=== PATIENT | male | born 1930 | race Caucasian/White ===

== ENCOUNTER 2018-02-25 13:57 | Emergency (ER) | END 2018-02-25 16:51 | disposition home or self-care (01) ==

== ENCOUNTER 2018-07-12 01:30 | Observation (INO) | payer BC ==
[2018-07-12] VITALS (9 sets, daily range): BP systolic 100–137; BP diastolic 57–73; PULSE 61–103; RESP 16–20; Ht 205.7 cm; Wt 79.5 kg
[~2018-07-12] VITALS: Ht 205.7 cm; Wt 79.5 kg
[~2018-07-12 01:30] MED LIST: CIPR500T4 PO; FINA5TAB4 PO; GLIP10TA14 PO; LEVO50TA7 PO; METF100010 PO; TERA2CAP3 PO
--- NOTE | 2018-07-12 02:31 | ERD ---
ER Documentation Chief Complaint Chief Complaint DIFFICULTY BREATHING X 4 DAYS HPI The patient is a 87-year-old male, presenting to the ER because of acute dyspnea for the last 4-day, dyspnea on exertion, had similar symptoms previously, denies fever, cough, neck pain, chest pain, abdominal pain, vomiting 20 sigmoid diarrhea. He has history of metastatic prostate cancer, recently treated with injection about 4 days ago. He does smoke a pack a day, denies drinking Past medical history: Metastatic prostate cancer, hypothyroidism, diabetes mellitus, ?COPD Past surgical history: None ROS All systems reviewed and are negative except as per history of present illness. Medications Home Meds Active Scripts Ciprofloxacin Hcl* (Ciprofloxacin Hcl*) 500 Mg Tablet, 500 MG PO BID for 10 Days, TAB Prov:JACOBO WANG DO 02/25/18 Reported Medications Levothyroxine Sodium* (Levothyroxine Sodium*) 50 Mcg Tablet, 50 MCG PO BEFORE BREAKFAST, #30 TAB 02/25/18 Metformin Hcl* (Metformin Hcl*) 1,000 Mg Tablet, 1000 MG PO WITH BREAKFAST DINNE, #60 TAB 02/25/18 Glipizide* (Glipizide*) 10 Mg Tablet, 20 MG PO AC BREAKFAST DINNER, TAB 02/25/18 Finasteride* (Finasteride*) 5 Mg Tablet, 5 MG PO DAILY, TAB 02/25/18 Terazosin Hcl* (Terazosin Hcl*) 2 Mg Capsule, 4 MG PO QHS, CAP 02/25/18 Allergies Allergies: Coded Allergies: No Known Allergy (Unverified , 07/12/18) PMhx/Soc History of Surgery: No Anesthesia Reaction: No Hx Neurological Disorder: No Hx Respiratory Disorders: No Hx Cardiac Disorders: No Hx Psychiatric Problems: No Hx Miscellaneous Medical Probl: Yes (DM, ENLARGE PROSTATE) Hx Alcohol Use: No Hx Substance Use: No Hx Tobacco Use: Yes Physical Exam Vitals Vital Signs Date Temp Pulse Resp B/P (MAP) Pulse Ox O2 O2 Flow FiO2 Time Delivery Rate 07/12/18 Nasal 2 04:54 Cannula 07/12/18 85 23 134/77 96 Room Air 04:28 (96) 07/12/18 96.3 108 20 136/73 96 01:38 (94) Physical Exam Const: No acute distress. Head: Atraumatic. Eyes: Normal Conjunctiva. ENT: Normal External Ears, Nose and Mouth. Neck: Full range of motion. No meningismus. Resp: Decreased breath sounds bilateral Cardio: Regular rate and rhythm. Abd: Soft, non distended, normal bowel sounds, non tender. Skin: No petechiae or rashes. Back: No midline or flank tenderness. Ext: Minimal right leg edema, no calf tenderness Neur: Awake and alert. No focal deficit Psych: Normal Mood and Affect. Result Diagram: 07/12/18 0250 07/12/18 0250 Results 24 hrs Laboratory Tests Test 07/12/18 02:50 07/12/18 03:05 07/12/18 03:13 07/12/18 05:46 White Blood Count 6.5 10^3/ul Red Blood Count 4.09 10^6/ul Hemoglobin 12.4 g/dl Hematocrit 36.7 % Mean Corpuscular 89.7 fl Volume Mean Corpuscular 30.3 pg Hemoglobin Mean Corpuscular 33.8 g/dl Hemoglobin Concen t Red Cell 12.9 % Distribution Width Platelet Count 169 10^3/UL Mean Platelet 11.0 fl Volume Immature 0.300 % Granulocytes % Neutrophils % 69.1 % Lymphocytes % 17.3 % Monocytes % 10.0 % Eosinophils % 2.8 % Basophils % 0.5 % Nucleated Red 0.0 /100WBC Blood Cells % Immature 0.020 10^3/ul Granulocytes # Neutrophils # 4.5 10^3/ul Lymphocytes # 1.1 10^3/ul Monocytes # 0.7 10^3/ul Eosinophils # 0.2 10^3/ul Basophils # 0.0 10^3/ul Nucleated Red 0.0 10^3/ul Blood Cells # Prothrombin Time 14.6 Sec Prothrombin Time 1.1 Ratio INR International 1.13 Normalized Ratio Activated 31.7 Sec Partial Thrombopl ast Time Sodium Level 139 mmol/L Potassium Level 4.2 mmol/L Chloride Level 103 mmol/L Carbon Dioxide 28 mmol/L Level Anion Gap 8 Blood Urea 26 mg/dl Nitrogen Creatinine 1.02 mg/dl Est Glomerular mL/min Filtrat Rate mL/min Glucose Level 129 mg/dl Calcium Level 9.2 mg/dl Total Bilirubin 0.3 mg/dl Direct Bilirubin 0.00 mg/dl Indirect 0.3 mg/dl Bilirubin Aspartate Amino 31 IU/L Transf (AST/SGOT) Alanine 21 IU/L Aminotransferase (ALT/SGPT) Alkaline 59 IU/L Phosphatase Troponin I 0.074 ng/ml Total Protein 7.1 g/dl Albumin 3.8 g/dl Globulin 3.30 g/dl Albumin/Globulin 1.15 Ratio Urine Color STRAW Urine Clarity CLEAR Urine pH 6.0 Urine Specific 1.005 [place] Urine Ketones NEGATIVE mg/dL Urine Nitrite NEGATIVE mg/dL Urine Bilirubin NEGATIVE mg/dL Urine NEGATIVE mg/dL Urobilinogen Urine Leukocyte NEGATIVE Doretha/ul Esterase Urine Microscopic 0 /HPF RBC Urine Microscopic 0 /HPF WBC Urine Hemoglobin 1+ mg/dL Urine Glucose NEGATIVE mg/dL Urine Total NEGATIVE mg/dl Protein POC Venous 1.4 mmol/L 1.3 mmol/L Lactate Current Medications Medications Dose Sig/Annemarie Start Time Status Last (Trade) Ordered Route PRN Stop Time Admin Dose Reason Admin IV Flush 10 ml STK-MED 07/12/18 DC 07/12/18 (NS 10 ml) ONCE .ROUTE 04:42 04:53 07/12/18 04:43 Sodium 100 ml @ ud STK-MED 07/12/18 DC 07/12/18 Chloride ONCE .ROUTE 04:42 04:53 07/12/18 04:43 Iohexol 100 ml @ ud STK-MED 07/12/18 DC 07/12/18 ONCE .ROUTE 04:42 04:53 07/12/18 04:43 Vancomycin 250 ml @ ONCE ONCE 07/12/18 07/12/18 HCl 125 mls/hr IVPB 05:00 05:44 07/12/18 06:59 Piperacillin 100 ml @ ONCE ONCE 07/12/18 DC 07/12/18 Sod/ 200 mls/hr IVPB 05:00 05:35 Tazobactam 07/12/18 05:29 Sod Sodium 2,390 ml @ BOLUS X1 07/12/18 07/12/18 Chloride 1,195 mls/hr ONCE IV 05:00 05:36 07/12/18 06:59 Procedures/MDM [place] [id number] Radiology Main Line: [phone] DIAGNOSTIC IMAGING REPORT Patient: PEDRO LUIS BLAKE : 1930 Age: 87 Sex: M MR #: [id number] DOS: 07/12/18 0240 Ordering MD: CASSIE WATSON MD Location: E/R Room/Bed: PROCEDURE: XR Chest. CLINICAL INDICATION: Sepsis TECHNIQUE: AP view of the chest. COMPARISON: None FINDINGS: The heart is enlarged. There is aortic knob calcification. There is mild pulmonary vascular congestion. There is a left lower lobe patchy airspace opacity suspicious for pneumonia. Multiple densities project over the left upper and mid hemithorax. IMPRESSION: Cardiomegaly and mild pulmonary vascular congestion. Left lower lobe patchy airspace opacity suspicious for pneumonia. RPTAT: HAP Admit-r Pal, Physician Date Time Electronically viewed and signed by Admit-r Pal, Physician on 07/12/2018 04:24 AP/ CC: CASSIE WATSON MD [phone] CTA Chest pending EKG: Read by emergency physician Rate/Rhythm: Normal Sinus Rhythm 91 beats/min QRS, ST, T-waves: No ST elevation, no T inversion, PVC, LBBB Impression: Abnormal EKG MEDICAL MAKING DECISION: The patient is a 87-year-old male, presenting with acute pneumonia per chest x-ray, probable COPD exacerbation, acute right pleural effusion. He was treated with vancomycin IV and cefepime IV due to pneumonia on the chest x-ray The differential diagnoses considered include but are not limited to asthma, COPD exac, pneumonia, pulmonary embolus, pleural effusion, congestive heart failure. Departure Diagnosis: Primary Impression: PNA (pneumonia) Additional Impression: Anemia Condition: Stable Comments I discussed the findings with the patient. I discussed the patient with the hospitalist Dr Tracey at 5:15am. who was made aware of the lab, the treatment, the patient condition, pending CTA chest. The patient is admitted to [facility] Disclaimer: Inadvertent spelling and grammatical errors are likely due to EHR/dictation software use and do not reflect on the overall quality of patient care. Also, please note that the electronic time recorded on this note does not necessarily reflect the actual time of the patient encounter. CASSIE WATSON MD Jul 12, 2018 02:31
[2018-07-12] MEDS ORDERED: SOD CHLORIDE 0.9% 100 ML ONE (04:42)
[2018-07-12] MEDS ORDERED: IOHEXOL 100 ML ONE (04:42)
[2018-07-12] MEDS ORDERED: PIPER-TAZO 3.375 GM IV (PMX) 100 ML IVPB ONE (05:00)
[2018-07-12] MEDS ORDERED: SOD CHLORIDE 0.9% 2,390 ML IV ONE (05:00)
[2018-07-12] MEDS ORDERED: VANCOMYCIN 1 GM (PMX) 250 ML IVPB ONE (05:00)
[2018-07-12] MEDS ORDERED: ACETAMINOPHEN 325 MG TAB PO PRN (09:00)
[2018-07-12] MEDS ORDERED: NACL 0.9% 3 ML SYG IV SCH (09:00)
[2018-07-12] MEDS ORDERED: FUROSEMIDE 40 MG INJ IV ONE (09:00)
[2018-07-12] MEDS ORDERED: MAGNESIUM HYDROXIDE 30ML CUP PO PRN (09:00)
[2018-07-12] MEDS ORDERED: DOCUSATE SODIUM 100 MG CAP PO PRN (09:00)
[2018-07-12] MEDS ORDERED: ENOXAPARIN 40 MG/0.4 ML SYG SC SCH (09:00)
[2018-07-12] MEDS ORDERED: ONDANSETRON 4 MG INJ IV PRN (09:00)
[2018-07-12] MEDS ORDERED: ALBUTEROL/IPRATROPIUM (NEB) 3 ML AMP HHN PRN (09:00)
[2018-07-12] MEDS ORDERED: BISACODYL 10 MG SUPP PR PRN (09:00)
[2018-07-12] MEDS ORDERED: NITROGLYCERIN (SL) 0.4 MG TAB SL PRN (09:00)
[2018-07-12] MEDS: FAMOTIDINE 20 MG TAB PO SCH ×2 (09:58→21:09)
[2018-07-12] MEDS: NICOTINE (21 MG/24 HR) PATCH TRANSDERM SCH (09:59)
[2018-07-12] MEDS: FINASTERIDE 5 MG TAB PO SCH (10:41)
[2018-07-12] MEDS: FLUTICASONE/VILANTEROL 100-25 INH SCH (10:41)
--- NOTE | 2018-07-12 12:08 | HP ---
Date/Time of Note Date/Time of Note DATE: 07/12/18 TIME: 12:06 Assessment/Plan VTE Prophylaxis Risk score (from Ns)>0 risk: 4 SCD applied (from Ns): Yes Pharmacological prophylaxis: LMWH Lines/Catheters IV C[facility]ter [facility]from [facility] Saline Lock Assessment/Plan Assessment/Plan 87-year-old male with: 1. Mild respiratory distress mostly dyspnea on exertion, likely COPD with a possibly mild exacerbation secondary to bronchitis possibly viral. Patient is advised to stop smoking. Starting maintenance therapy including Breo Ellipta, Spiriva. Levaquin for possible bronchitis. No pneumonia per CT chest and like report from chest x-ray. Patient will be evaluated for home O2. According to the daughter likely this episodes of shortness of breath have been chronic so far. Nicotine patch ordered. 2. Possible mild volume overload, CT chest with the [id number] right pleural effusion that seems to be likely chronic with compressive atelectasis and also some infiltrate that could be consistent with pulmonary edema, patient is noted to have also cardiomegaly. 2D echocardiogram is pending. He has been given a dose of Lasix x1, cardiac enzymes negative on admission, will repeat once 12 hours apart to rule out ACS. He remains in sinus rhythm 3. Diabetes mellitus: Status post CT angiogram chest, holding of metformin, continue glipizide, sliding scale insulin. 4. Hypothyroidism: Continue home medications 5. 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 Continue supportive care, patient on palliative chemotherapy apparently with Lupron. Can benefit from supplemental oxygen at home 2 L nasal cannula. Prophylaxis: Lovenox for DVT prophylaxis, patient tolerating p.o. Disposition: Patient was admitted on observation, on telemetry. Monitor respiratory status, will see if qualify for home O2 and arrangements to be made for discharge planning hopefully in the next 24-48 hours. Result Diagram: 07/12/18 0250 07/12/18 0250 Results 24hrs Laboratory Tests Test 07/12/18 02:50 07/12/18 03:05 07/12/18 03:13 07/12/18 05:46 White Blood Count 6.5 Red Blood Count 4.09 L Hemoglobin 12.4 L Hematocrit 36.7 L Mean Corpuscular 89.7 Volume Mean Corpuscular 30.3 Hemoglobin Mean Corpuscular 33.8 Hemoglobin Concent Red Cell 12.9 Distribution Width Platelet Count 169 Mean Platelet Volume 11.0 H Immature 0.300 Granulocytes % Neutrophils % 69.1 Lymphocytes % 17.3 Monocytes % 10.0 Eosinophils % 2.8 Basophils % 0.5 Nucleated Red Blood 0.0 Cells % Immature 0.020 Granulocytes # Neutrophils # 4.5 Lymphocytes # 1.1 Monocytes # 0.7 Eosinophils # 0.2 Basophils # 0.0 Nucleated Red Blood 0.0 Cells # Prothrombin Time 14.6 Prothrombin Time 1.1 Ratio INR International 1.13 Normalized Ratio Activated 31.7 Partial Thromboplast Time Sodium Level 139 Potassium Level 4.2 Chloride Level 103 Carbon Dioxide Level 28 Anion Gap 8 Blood Urea Nitrogen 26 H Creatinine 1.02 Est Glomerular Filtrat Rate mL/min Glucose Level 129 Calcium Level 9.2 Total Bilirubin 0.3 Direct Bilirubin 0.00 Indirect Bilirubin 0.3 Aspartate Amino 31 Transf (AST/SGOT) Alanine 21 Aminotransferase (AL T/SGPT) Alkaline Phosphatase 59 Troponin I 0.074 Total Protein 7.1 Albumin 3.8 Globulin 3.30 H Albumin/Globulin 1.15 Ratio Urine Color STRAW Urine Clarity CLEAR Urine pH 6.0 Urine Specific 1.005 [place] Urine Ketones NEGATIVE Urine Nitrite NEGATIVE Urine Bilirubin NEGATIVE Urine Urobilinogen NEGATIVE Urine Leukocyte NEGATIVE Esterase Urine Microscopic 0 RBC Urine Microscopic 0 WBC Urine Hemoglobin 1+ H Urine Glucose NEGATIVE Urine Total Protein NEGATIVE POC Venous Lactate 1.4 1.3 Test 07/12/18 06:45 Lactic Acid Level 0.9 HPI/ROS Admit Date/Time Admit Date/Time Jul 12, 2018 at 05:19 Hx of Present Illness Chief complaint: Shortness of breath History of presenting illness: 87-year-old male with history of diabetes mellitus, prostate CA metastatic stage IV with bone metastases and according to the daughter also pulmonary involvement who was brought into the emergency department with increasing dyspnea on exertion and decreased exercise tolerance for the past 4 days. Patient got his shot of Lupron for the first time 4 days ago and since then, according to the daughter, she did notice decreased exercise tolerance, increased shortness of breath with exertion and increasing fatigue. Patient has been coughing slightly productive cough over the past 24 hours. No fevers, no chills. Per evaluation in the emergency department, WBC within normal, lactic acid within normal. Chest x-ray at first was identifying a left lower lobe infiltrate and possibility of a pneumonia however CT chest did confirm that the patient does have emphysema and no acute infiltrate seen no signs of pneumonia, he does have a small to moderate right pleural effusion with some compressive atelectasis, likelihood is that this is not new and may be related to metastatic disease. According to the daughter, she has been asking the primary care physician to have the patient approved for home O2 which suspect that he has been having issues with dyspnea on exertion more or less chronically. He is a heavy tobacco user with signs of COPD on CAT scan and still smoking 1 pack a day. Patient denies any previous cardiac disease, no chest pains. Currently stable on 2 L nasal cannula. ROS Constitutional: fatigue Eyes: no complaints ENT: no complaints Respiratory: cough, shortness of breath, other (Dyspnea on exertion and decreased exercise tolerance) Cardiovascular: no complaints Gastrointestinal: no complaints Genitourinary: no complaints Musculoskeletal: no complaints Skin: no complaints Neurologic: no complaints Endocrine: no complaints Psychological: no complaints PMH/Family/Social Past Medical History Diabetes mellitus Metastatic prostate cancer, stage IV, started Lupron 4 days ago. Patient with the mets to the bone and according to daughter also pulmonary involvement Hypothyroidism Medications Current Medications Finasteride (Proscar) 5 mg DAILY PO Last administered on 07/12/18at 10:41; Admin Dose 5 MG; Start 07/12/18 at 09:00 Glipizide (Glucotrol) 20 mg AC BREAKFAST DINNER PO ; Start 07/12/18 at 17:30 Levothyroxine Sodium (Synthroid) 50 mcg BEFORE BREAKFAST PO ; Start 07/13/18 at 07:00 Terazosin HCl (Hytrin) 4 mg QHS PO ; Start 07/12/18 at 21:00 IV Flush (NS 3 ml) 3 ml PER PROTOCOL IV ; Start 07/12/18 at 09:00 Ondansetron HCl (Zofran Inj) 4 mg Q6H PRN IV NAUSEA AND/OR VOMITING; Start at 09:00 Nitroglycerin (Nitroglycerin (Sl Tab) 0.4 Mg) 1 tab Q5M PRN SL CHEST PAIN; Start 07/12/18 at 09:00 Acetaminophen (Tylenol Tab) 650 mg Q6H PRN PO PAIN LEVEL 1-3 OR FEVER; Start 07/12/18 at 09:00 Docusate Sodium (Colace) 100 mg Q12H PRN PO CONSTIPATION; Start 07/12/18 at 09:00 Magnesium Hydroxide (Milk Of Mag) 30 ml DAILY PRN PO CONSTIPATION; Start 07/12/18 at 09:00 Bisacodyl (Dulcolax Supp) 10 mg DAILY PRN DC CONSTIPATION; Start 07/12/18 at 09:00 Famotidine (Pepcid) 20 mg Q12 PO Last administered on 07/12/18at 09:58; Admin Dose 20 MG; Start 07/12/18 at 09:00 Fluticasone/ Vilanterol (Breo Ellipta 100-25 Mcg Inh) 1 inh DAILY INH Last administered on 07/12/18at 10:41; Admin Dose 1 INH; Start 07/12/18 at 09:00 Albuterol/ Ipratropium (Duoneb) 3 ml Q4H RESP THERAPY PRN HHN SHORTNESS OF BREATH; Start 07/12/18 at 09:00 Diagnostic Test (Pha) (Accu-Chek) 1 ea 02 XX ; Start 07/13/18 at 02:00 Insulin Aspart (Novolog Insulin Pen) NOVOLOG *MILD* ALGORITHM WITH MEALS BEDTIME SC ; Start 07/12/18 at 12:00 Nicotine (Nicoderm 21 Mg/ 24hr) 1 patch DAILY TRANSDERM Last administered on 07/12/18at 09:59; Admin Dose 1 PATCH; Start 07/12/18 at 10:00 Tiotropium [place] (Spiriva) 1 inh DAILY INH ; Start 07/12/18 at 12:30; Status UNV Levofloxacin (Levaquin) 500 mg DAILY PO ; Start 07/12/18 at 12:30; Status UNV Coded Allergies: No Known Allergy (Unverified , 07/12/18) Past Surgical History Prostate biopsy remotely Family History Significant Family History: no pertinent family hx Social History Alcohol Use: occasionally Smoking Status: Current every day smoker (1 pack/day x 80 yrs ) Drug Use: none Exam/Review of Systems Vital Signs Vitals Vital Signs Date Temp Pulse Resp B/P (MAP) Pulse Ox O2 O2 Flow FiO2 Time Delivery Rate 07/12/18 97.6 61 16 109/67 95 11:21 (81) 07/12/18 Nasal 2.0 08:00 Cannula Exam Constitutional: alert, oriented, well developed (Of appropriate age) Respiratory: normal air movement, congested cough, diminished breath sounds (Mostly right lower lobe, he does have some few crackles and a congested cough), other (On 2 L nasal cannula) Cardiovascular: regular rate and rhythm, nl pulses Gastrointestinal: soft, non-tender Musculoskeletal: nl extremities to inspection Extremities: normal pulses, other (No edema, clubbing or cyanosis) Neurological: [employer] SK[employer] OFFICER II-XII intact, nl mental status, nl speech, nl strength, other (Decreased exercise tolerance) Additional Comments EKG: Sinus rhythm with PVCs 91 bpm PROCEDURE: CTA Chest. CLINICAL INDICATION: Shortness of breath TECHNIQUE: The study was performed utilizing a multidetector CT scanner. Direct spiral 1 mm axial sections were obtained from the thoracic inlet to the upper abdomen with the use of 100 cc of Omnipaque 350 nonionic intravenous c ontrast material and reformatted at 3 mm. Coronal, sagittal and 3-D angiographic reformations were obtained. The images were reviewed on a PACS workstation. CT D I 35 mCi Dose 615 mGy/cm Individualized dose optimization technique was used for the performance of this exam. This included 1. Automated exposure control. 2. Adjustment of the mA and / or kV according to the patient's size. 3. Use of iterative reconstruction technique. COMPARISON: No prior studies are available for comparison. FINDINGS: There is no central or peripheral pulmonary embolism. There is no evidence of pulmonary hypertension with the main pulmonary artery measuring 3 cm in diameter. There is calcified plaque in the wall of the aorta with no dissection or aneurysm. There is atelectasis in the dependent portion of the right lower lobe with plate-like atelectasis at the medial left lung base. No alveolar pneumonia or mass is present. There is a 7 mm well-demarcated noncalcified nodule on the anterolateral aspect of the right lower lobe. Increased pleural based linear densities are noted in both lungs.. There is no hilar or mediastinal adenopathy or mass. Noted is a small to moderate-sized right pleural effusion. No left pleural effusion or pericardial effusion is seen.. There is no pneumothorax. Noted are coronary artery calcifications. There is central lobular emphysema most pronounced in the upper lobes. There are multiple less than 1 cm hepatic cysts. No adrenal abnormality is seen.. There are blastic metastases throughout the ribs and spine. No fractures. There multiple BBs seen in the soft tissues at the base of the neck and in the left chest and shoulder. IMPRESSION: No pulmonary embolism. No thoracic aortic aneurysm or dissection. Coronary artery calcifications.. No pneumonia. Emphysema. Right pleural effusion and with compressive atelectasis. Subsegmental atelectasis left lung base. Increased linear pleural-based markings both lungs. Question fibrotic scarring versus mild edema. Blastic metastases. Clinical correlation suggested. Hepatic cysts. .Ankit Alonso MD, MD Date Time Electronically viewed and signed by .Ankit Alonso MD, on 07/12/2018 05:35 .A/ PROCEDURE: XR Chest. CLINICAL INDICATION: Sepsis TECHNIQUE: AP view of the chest. COMPARISON: None FINDINGS: The heart is enlarged. There is aortic knob calcification. There is mild pulmonary vascular congestion. There is a left lower lobe patchy airspace opacity suspicious for pneumonia. Multiple densities project over the left upper and mid hemithorax. IMPRESSION: Cardiomegaly and mild pulmonary vascular congestion. Left lower lobe patchy a irspace opacity suspicious for pneumonia. RPTAT: HAP Admit-maynor Gupta, Physician Date Time Electronically viewed and signed by Alexandria Gupta, Physician on 07/12/2018 04:24 DEION GERMAIN Jul 12, 2018 12:08
[2018-07-12] MEDS: INSULIN ASPART [NOVOLOG] 3 ML PEN SC SCH ×3 (12:17→21:00)
[2018-07-12] MEDS: LEVOFLOXACIN 500 MG TAB PO SCH (14:08)
[2018-07-12] MEDS: TIOTROPIUM 18 MCG CAPSULE INHA DEV INH SCH (14:09)
[2018-07-12] MEDS ORDERED: GLUCAGON 1 MG INJ IM PRN (15:00)
[2018-07-12] MEDS ORDERED: DEXTROSE 50% 50 ML SYRINGE IV PRN ×2 (15:00)
[2018-07-12] MEDS ORDERED: GLUCOSE GEL 15 GRAM TUBE PO PRN ×2 (15:00)
[2018-07-12] MEDS ORDERED: GLUCOSE GEL 15 GRAM TUBE BUCCAL PRN (15:00)
[2018-07-12] MEDS: glipiZIDE 10 MG TAB PO SCH (17:12)
--- NOTE | 2018-07-12 18:56 | NUR ---
EOSS RECIVED THE PT FROM ER AT 0700 AM , PT ON 2 L NASAL CANULA . SR ON THE MONITOR , NO ACUTE DISTRESS IN THIS SHIFT , PT HAS STAGE II SACRAL PRESSURE ULCER .FAMILY AT BED SIDE . POSSIBLE DC TOMORROW .
[2018-07-12] MEDS ORDERED: TERAZOSIN 2 MG CAP PO SCH (21:00)
[2018-07-12] MEDS: IBUPROFEN 600 MG TAB PO PRN (21:10)
[2018-07-13] VITALS (9 sets, daily range): BP systolic 114–149; BP diastolic 58–76; PULSE 54–104; RESP 18
[2018-07-13] MEDS ORDERED: ACCU-CHEK XX SCH (02:00)
[2018-07-13] MEDS: IBUPROFEN 600 MG TAB PO PRN (03:40)
--- NOTE | 2018-07-13 04:17 | NUR ---
Pt. complained of chest pain w/ deep breathing/ coughing x 1 this shift relieved by taking Motrin 600 mg tab; also complained of right knee pain x1 also relieved by 600 mg of Motrin. Jennifer/S ERNESTO siegel. Addendum: 07/13/18 at 0424 by SOULEYMANE MAYS RN Coughing prouctively.
[2018-07-13] MEDS ORDERED: FUROSEMIDE 20 MG INJ IV SCH (06:00)
[2018-07-13] MEDS: LEVOFLOXACIN 500 MG TAB PO SCH (06:46)
[2018-07-13] MEDS ORDERED: LEVOTHYROXINE 50 MCG TAB PO SCH (07:00)
[2018-07-13] MEDS: glipiZIDE 10 MG TAB PO SCH ×2 (07:57→17:04)
[2018-07-13] MEDS: INSULIN ASPART [NOVOLOG] 3 ML PEN SC SCH ×3 (08:06→17:02)
[2018-07-13] MEDS: NICOTINE (21 MG/24 HR) PATCH TRANSDERM SCH (08:13)
[2018-07-13] MEDS: FAMOTIDINE 20 MG TAB PO SCH (08:13)
[2018-07-13] MEDS: FINASTERIDE 5 MG TAB PO SCH (08:13)
[2018-07-13] MEDS: FLUTICASONE/VILANTEROL 100-25 INH SCH (08:14)
[2018-07-13] MEDS: TIOTROPIUM 18 MCG CAPSULE INHA DEV INH SCH (08:14)
[2018-07-13] MEDS ORDERED: ENOXAPARIN 40 MG/0.4 ML SYG SC SCH (09:00)
--- NOTE | 2018-07-13 10:00 | NUR ---
RN NOTE PT ON 85% O2 SATURATION ON ROOM AIR .
--- NOTE | 2018-07-13 13:23 | PN ---
Date/Time of Note Date/Time of Note DATE: 07/13/18 TIME: 12:51 Assessment/Plan VTE Prophylaxis Risk score (from Ns)>0 risk: 4 SCD applied (from Ns): Yes Pharmacological prophylaxis: LMWH Lines/Catheters IV Catheter Type (from Nrs): Saline Lock Assessment/Plan Assessment/Plan 87-year-old male with: 1. Mild respiratory distress mostly dyspnea on exertion, likely COPD with a possibly mild exacerbation secondary to bronchitis possibly viral. Patient is advised to stop smoking. Starting maintenance therapy including Breo Ellipta, Spiriva. Levaquin for possible bronchitis. No pneumonia per CT chest and like report from chest x-ray. Patient to be discharged home on home O2 today. According to the daughter likely this episodes of shortness of breath have been chronic so far. Nicotine patch advised but most likely patient will return to tobacco use. 2. Possible mild volume overload, CT chest with the [id number] right pleural effusion that seems to be likely chronic with compressive atelectasis and also some infiltrate that could be consistent with pulmonary edema, patient is noted to have also cardiomegaly. 2D echocardiogram done by pending, BNP was elevated, patient was given a dose of Lasix yesterday and today and cardiac enzymes have remained negative. He remains in sinus rhythm 3. Diabetes mellitus: Status post CT angiogram chest, holding of metformin, continue glipizide, sliding scale insulin. Okay to resume metformin on 07/15 4. Hypothyroidism: Continue home medications 5. 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 Continue supportive care, patient on palliative chemotherapy apparently with Lupron. Can benefit from supplemental oxygen at home 2 L nasal cannula. Patient currently on palliative care and likely to proceed to hospice care after discussion with today Prophylaxis: Lovenox for DVT prophylaxis, patient tolerating p.o. Disposition: Discharge planning home with home O2 today, patient to resume palliative care through [facility] and after discussion with the daughter she is likely to proceed to sign of patient on hospice actually and comfort measures. Result Diagram: 07/13/1851607/13/18516 Results 24hrs Laboratory Tests Test 07/12/18 17:10 07/12/18 21:16 07/13/18 05:17 07/13/18 07:55 Bedside Glucose 132 132 268 H White Blood Count 6.5 Red Blood Count 4.22 L Hemoglobin 12.6 L Hematocrit 37.3 L Mean Corpuscular 88.4 Volume Mean Corpuscular 29.9 Hemoglobin Mean Corpuscular 33.8 Hemoglobin Concent Red Cell 12.8 Distribution Width Platelet Count 159 Mean Platelet Volume 10.9 H Immature 0.300 Granulocytes % Neutrophils % 65.7 Lymphocytes % 18.9 Monocytes % 11.9 H Eosinophils % 2.6 Basophils % 0.6 Nucleated Red Blood 0.0 Cells % Immature 0.020 Granulocytes # Neutrophils # 4.2 Lymphocytes # 1.2 Monocytes # 0.8 Eosinophils # 0.2 Basophils # 0.0 Nucleated Red Blood 0.0 Cells # Sodium Level 137 Potassium Level 3.8 Chloride Level 100 Carbon Dioxide Level 30 Anion Gap 7 Blood Urea Nitrogen 26 H Creatinine 1.15 Est Glomerular Filtrat Rate mL/min Glucose Level 132 Hemoglobin A1c 6.6 H Calcium Level 9.0 Magnesium Level 1.9 Test 07/13/18 12:02 Bedside Glucose 115 Subjective 24 Hr Interval Summary Free Text/Dictation Patient doing well, he gets slightly tachycardic and tachypneic on room air, at rest maintain his saturations around 92% however does desaturate with ambulation down to 85%. Patient has been asking for home O2 for the past few weeks through palliative care that is following him at home but unable to get it. He seems to be definitely more comfortable with 2 L of nasal cannula on board. Of note it became apparent that the patient actually is contemplating hospice placement, he has been on palliative care already for stage IV metastatic prostate cancer to bones and lungs. I had another discussion with the daughter today, now she reports that she is taking over as DPOA and will put an end to any and all further treatment for the prostate cancer. She will declined any further injections of Lupron and proceed with hospice care most likely. In the meantime, she will be comfortable taking her father home with home O2. I have advised for the patient to quit smoking also which may be a challenge but I told her if the patient does choose to go on comfort measures and hospice care, he may do as he sees fit as long as he understands that tobacco will worsen his shortness of breath. Exam/Review of Systems Vital Signs Vitals Vital Signs Date Temp Pulse Resp B/P (MAP) Pulse Ox O2 O2 Flow FiO2 Time Delivery Rate 07/13/18 83 12:11 07/13/18 98.7 18 114/58 97 11:27 (76) 07/13/18 Nasal 2.0 07:25 Cannula Intake and Output 07/12/18 07/12/18 07/13/18 1515:00 23:00 07:00 IntakeIntake Total 600 ml 480 ml BalanceBalance 600 ml 480 ml Exam Constitutional: alert, oriented, frail Respiratory: clear to auscultation, diminished breath sounds (At bases bilaterally primarily.), other (Improved breath sounds,) Cardiovascular: regular rate and rhythm, nl pulses Gastrointestinal: soft, non-tender Musculoskeletal: nl extremities to inspection Extremities: normal pulses, other (No edema, clubbing or cyanosis) Neurological: MANAGER COMMUNITY II-XII intact, nl mental status, nl speech, other (Strength at baseline.) Medications Medications Current Medications Finasteride (Proscar) 5 mg DAILY PO Last administered on 07/13/18at 08:13; Admin Dose 5 MG; Start 07/12/18 at 09:00 Glipizide (Glucotrol) 20 mg AC BREAKFAST DINNER PO Last administered on 07/13/18at 07:57; Admin Dose 20 MG; Start 07/12/18 at 17:30 Levothyroxine Sodium (Synthroid) 50 mcg BEFORE BREAKFAST PO Last administered on 07/13/18at 07:57; Admin Dose 50 MCG; Start 07/13/18 at 07:00 Terazosin HCl (Hytrin) 4 mg QHS PO Last administered on 07/12/18at 21:09; Admin Dose 4 MG; Start 07/12/18 at 21:00 IV Flush (NS 3 ml) 3 ml PER PROTOCOL IV ; Start 07/12/18 at 09:00 Ondansetron HCl (Zofran Inj) 4 mg Q6H PRN IV NAUSEA AND/OR VOMITING; Start 07/12/18 at 09:00 Nitroglycerin (Nitroglycerin (Sl Tab) 0.4 Mg) 1 tab Q5M PRN SL CHEST PAIN; Start 07/12/18 at 09:00 Acetaminophen (Tylenol Tab) 650 mg Q6H PRN PO PAIN LEVEL 1-3 OR FEVER; Start 07/12/18 at 09:00 Docusate Sodium (Colace) 100 mg Q12H PRN PO CONSTIPATION; Start 07/12/18 at 09:00 Magnesium Hydroxide (Milk Of Mag) 30 ml DAILY PRN PO CONSTIPATION; Start 07/12/18 at 09:00 Bisacodyl (Dulcolax Supp) 10 mg DAILY PRN WI CONSTIPATION; Start 07/12/18 at 09:00 Famotidine (Pepcid) 20 mg Q12 PO Last administered on 07/13/18at 08:13; Admin Dose 20 MG; Start 07/12/18 at 09:00 Fluticasone/ Vilanterol (Breo Ellipta 100-25 Mcg Inh) 1 inh DAILY INH Last administered on 07/13/18at 08:14; Admin Dose 1 INH; Start 07/12/18 at 09:00 Albuterol/ Ipratropium (Duoneb) 3 ml Q4H RESP THERAPY PRN HHN SHORTNESS OF BREATH; Start 07/12/18 at 09:00 Diagnostic Test (Pha) (Accu-Chek) 1 ea 02 XX ; Start 07/13/18 at 02:00 Insulin Aspart (Novolog Insulin Pen) NOVOLOG *MILD* ALGORITHM WITH MEALS BEDTIME SC Last administered on 07/13/18at 08:06; Admin Dose 4 UNIT; Start 07/12/18 at 12:00 Nicotine (Nicoderm 21 Mg/ 24hr) 1 patch DAILY TRANSDERM Last administered on 07/13/18at 08:13; Admin Dose 1 PATCH; Start 07/12/18 at 10:00 Tiotropium [place] (Spiriva) 1 inh DAILY INH Last administered on 07/13/18at 08:14; Admin Dose 1 INH; Start 07/12/18 at 13:30 Levofloxacin (Levaquin) 500 mg DAILY@0600 PO Last administered on 07/13/18at 06:46; Admin Dose 500 MG; Start 07/12/18 at 12:30 Enoxaparin Sodium (Lovenox) 40 mg DAILY SC Last administered on 07/13/18at 08:14; Admin Dose 40 MG; Start 07/13/18 at 09:00 Miscellaneous Information 1 ea NOTE XX ; Start 07/12/18 at 15:00 Glucose (Glutose) 15 gm Q15M PRN PO DECREASED GLUCOSE; Start 07/12/18 at 15:00 Glucose (Glutose) 22.5 gm Q15M PRN PO DECREASED GLUCOSE; Start 07/12/18 at 15:00 Dextrose (D50w Syringe) 25 ml Q15M PRN IV DECREASED GLUCOSE; Start 07/12/18 at 15:00 Dextrose (D50w Syringe) 50 ml Q15M PRN IV DECREASED GLUCOSE; Start 07/12/18 at 15:00 Glucagon (Glucagen) 1 mg Q15M PRN IM DECREASED GLUCOSE; Start 07/12/18 at 15:00 Glucose (Glutose) 15 gm Q15M PRN BUCCAL DECREASED GLUCOSE; Start 07/12/18 at 15:00 Ibuprofen (Motrin) 600 mg Q6H PRN PO MILD PAIN LEVEL 1-3 Last administered on 07/13/18at 03:40; Admin Dose 600 MG; Start 07/12/18 at 20:00 Furosemide (Lasix) 20 mg DAILY@0600 IV Last administered on 07/13/18at 06:47; Admin Dose 20 MG; Start 07/13/18 at 06:00 DEION GERMAIN Jul 13, 2018 13:01
--- NOTE | 2018-07-13 13:25 | PDOCDIS ---
Discharge Instructions CONDITION [id number] Patient Condition: [id number] Stable HOME CARE INSTRUCTIONS: [id number] Special Diet: [id number] Carbohydrate controlled diet ACTIVITY: [id number] Activity Restrictions: Gosff4m Slowly Increase Activity FOLLOW UP/APPOINTMENTS Follow-up Plan Home O2 2 L nasal cannula with exertion and was sleeping at least Follow-up with [facility] hospice, patient already on palliative care and I encouraged family to sign up on hospice at this time patient with metastatic stage IV prostate CA including lung involvement and bone involvement Follow-up with PCP within 1 week. DEION GERMAIN Jul 13, 2018 13:25
[2018-07-13] MEDS ORDERED: FLUT1AER INH (13:28)
[2018-07-13] MEDS ORDERED: LEVO500T48 PO (13:28)
[2018-07-13] MEDS ORDERED: TIOT18CA INH (13:28)
[2018-07-13] MEDS ORDERED: METF100010 PO (13:28)
[2018-07-13] MEDS ORDERED: NICO-546 TRANSDERM (13:28)
--- NOTE | 2018-07-13 15:50 | NUR ---
CM: HOME Oxygen Home oxygen will be provided by [facility], coordinated by [facility]. Portable will be delivered to bedside Concentrator to home. Pt's daughter Jada, paided the co-payment and spoked with [facility] coordinator Beatriz.
--- NOTE | 2018-07-14 16:06 | RADRPT ---
Echocardiogram Report Patient Name: PEDRO LUIS BLAKE Gender: Male Date: 1930 Study Date: 12-Jul-2018 Performance Consultant: Yesi Lynn [facility] Location: [id number] Ref. Physician: ASHWIN GERMAIN Quality: Technically Difficult Study Procedures: Transthoracic echocardiogram with complete 2D, M-Mode, and doppler examination. Indications: Evaluate Left Ventricular function. Shortness of breath. 2D/M Mode Doppler Measurement Value Normal Ranges Measurement Value Normal Ranges LVIDd 2D 5.8 3.5 - 5.6 cm AV Peak Onesimo 1.1 m/sec LVIDs 2D 4.7 2.1 - 4.1 cm AV Peak PG 5.0 mmHg LVPWd 2D 1.1 0.6 - 1.1 cm LVOT Peak Onesimo 0.8 m/sec IVSd 2D 1.1 0.6 - 1.1 cm LVOT Peak PG 2.0 mmHg AoR Diam 2D 2.8 2.0 - 3.7 cm Lat E` Onesimo 0.1 m/sec LA/Ao 2D 1 0 - 1 Med E` Onesimo 0.1 m/sec LA Dimen 2D 3.6 2.3 - 4.0 cm Findings Left Ventricle: Normal left ventricular cavity size. Normal left ventricular wall thickness. Moderate to severe left ventricular systolic dysfunction. Ejection fraction is visually estimated at 35 %. Tissue Doppler/Mitral Doppler indices are consistent with impaired relaxation (Stage I diastolic dysfunction). Right Ventricle: Normal right ventricular size. Normal right ventricular systolic function. Left Atrium: The left atrium is normal in size. Right Atrium: The right atrium is normal in size. Mitral Valve: Normal appearance of the mitral valve. Mild mitral valve regurgitation. Aortic Valve: Normal appearance of the aortic valve. No significant aortic stenosis or insufficiency. Tricuspid Valve: Normal appearance and function of the tricuspid valve with trace physiologic regurgitation. Pericardium: Normal pericardium with no significant pericardial effusion. Aorta: Normal aortic root. IVC: Normal size and normal respiratory collapse consistent with normal right atrial pressure. Conclusions Normal left ventricular cavity size. Normal left ventricular wall thickness. Moderate to severe left ventricular systolic dysfunction. Ejection fraction is visually estimated at 35 %. Tissue Doppler/Mitral Doppler indices are consistent with impaired relaxation (Stage I diastolic dysfunction). Normal right ventricular size. Normal right ventricular systolic function. The left atrium is normal in size. The right atrium is normal in size. Normal appearance of the mitral valve. Mild mitral valve regurgitation. No significant valvular stenosis or regurgitation seen of remaining visualized valves. Normal pericardium with no significant pericardial effusion. Electronically Signed By: Ty Deutsch 14-Jul-2018 16:06:30 -0800 Patient Name: PEDRO LUIS BLAKE Study Date: 12-Jul-2018 [id number]
== END 2018-07-13 17:50 | disposition home or self-care (01) ==
LOC: E/R 01:30 → 6WM 05:19 → INTOOBSV 05:19 → 6WM 07:56 → UNDODISOB 07-13 15:47
PROVIDERS: ADMIT Internal Medicine; ATTEND Internal Medicine
DX: E11.9 Type 2 diabetes mellitus without complications (principal); E03.9 Hypothyroidism, unspecified; C61 Malignant neoplasm of prostate; C79.51 Secondary malignant neoplasm of bone
CPT/HCPCS: 36415; 71045; 71275; 80048; 80053; 81001; 82550; 82553; 82962; 83036; 83605; 83735; 83880; 84484; 85025; 85610; 85730; 87040; 87086; 87400; 93005; 93306; 99285; G0378; J1650; J1815; J1940; J2543; J3370; J7030; Q9967; 99217

== ENCOUNTER 2018-08-22 20:07 | Inpatient (IN) | payer BC ==
[~2018-08-22] VITALS: Ht 172.7 cm; Wt 82.2 kg
[~2018-08-22 20:07] MED LIST changes: -CIPR500T4 PO; +FLUT1AER INH; +LEVO500T48 PO; +NICO-546 TRANSDERM; +TIOT18CA INH
[2018-08-22] MEDS ORDERED: DEXTROSE 50% 50 ML SYRINGE IV STA (22:52)
[2018-08-22] MEDS ORDERED: LORAZEPAM 2 MG INJ ONE (23:56)
[2018-08-23] VITALS (16 sets, daily range): BP systolic 96–134; BP diastolic 58–76; PULSE 57–100; RESP 17–20; Ht 172.7 cm; Wt 82.2 kg
[2018-08-23] MEDS ORDERED: ONDANSETRON 4 MG INJ IV PRN
[2018-08-23] MEDS ORDERED: FUROSEMIDE 20 MG INJ IV ONE
[2018-08-23] MEDS ORDERED: ACETAMINOPHEN 325 MG TAB PO PRN
--- NOTE | 2018-08-23 00:05 | ERD ---
ER Documentation Chief Complaint Chief Complaint SOB HPI 87-year-old male with a history of metastatic prostate cancer to the lungs and spine currently on palliative care brought in by his daughter from home due to worsening shortness of breath. Patient was admitted about 1 month ago and at that time had similar symptoms but they have significantly worsened. He is scheduled for what sounds like a thoracentesis within the next few days, however since his symptoms are significantly worsening, daughter brought him to the ER for evaluation. He has not been eating well as he always vomits everything he eats. He has shortness of breath with even mild exertion. Palliative care has not been providing him with much symptomatic relief. His inhalers are not helping. No fevers or chills. No hemoptysis or phlegm production. He urinates normally. They have noticed swelling in his legs that have been progressively worsening but reportedly is not on diuretics. ROS All systems reviewed and are negative except as per history of present illness. Medications Home Meds Active Scripts Fluticasone-Vilanterol (Breo Ellipta Inhaler) 100-25 Mcg/Actuation Aer.pow.ba, 1 INH INH DAILY, #1 INHALER 3 Refills Prov:DEION GERMAIN 07/13/18 Tiotropium [place]* (Spiriva*) 18 Mcg Cap.w.dev, 1 INH INH DAILY, #1 INHALER 3 Refills Prov:DEION GERMAIN 07/13/18 Nicotine* (Nicotine* Patch) 21 mg/day Patch, 1 PATCH TRANSDERM DAILY for 30 Days Prov:DEION GERMAIN 07/13/18 Levofloxacin* (Levaquin*) 500 Mg Tablet, 500 MG PO DAILY for 5 Days, TAB next dose 07/14 Prov:DEION GERMAIN 07/13/18 Metformin Hcl* (Metformin Hcl*) 1,000 Mg Tablet, 1000 MG PO WITH BREAKFAST DINNE, #60 TAB resume on 07/15 Prov:DEION GERMAIN 07/13/18 Reported Medications Levothyroxine Sodium* (Levothyroxine Sodium*) 50 Mcg Tablet, 50 MCG PO BEFORE BREAKFAST, #30 TAB 02/25/18 Glipizide* (Glipizide*) 10 Mg Tablet, 20 MG PO AC BREAKFAST DINNER, TAB 02/25/18 Finasteride* (Finasteride*) 5 Mg Tablet, 5 MG PO DAILY, TAB 02/25/18 Terazosin Hcl* (Terazosin Hcl*) 2 Mg Capsule, 4 MG PO QHS, CAP 02/25/18 Allergies Allergies: Coded Allergies: No Known Allergy (Unverified , 08/22/18) PMhx/Soc History of Surgery: No Anesthesia Reaction: No Hx Neurological Disorder: No Hx Respiratory Disorders: No Hx Cardiac Disorders: No Hx Psychiatric Problems: Yes (DEMENTIA) Hx Miscellaneous Medical Probl: No Hx Alcohol Use: No Hx Substance Use: No Hx Tobacco Use: Yes FmHx Family History: No diabetes Physical Exam Vitals Vital Signs Date Temp Pulse Resp B/P (MAP) Pulse Ox O2 O2 Flow FiO2 Time Delivery Rate 08/23/18 73 27 121/89 96 BIPAP 01:13 (100) 08/23/18 90 96 45 00:08 08/22/18 98.4 88 18 132/80 95 21:44 (97) 08/22/18 Nasal 4 21:44 Cannula 08/22/18 97.4 90 22 132/80 95 Room Air 4.0 21:44 (97) 08/22/18 970.1 91 20 150/78 96 20:12 (102) Physical Exam Const: Mild respiratory distress, sitting comfortably upright in bed Head: Atraumatic Eyes: Normal Conjunctiva ENT: Dry mucous membranes Neck: Full range of motion. No meningismus. Resp: Diminished breath sounds bilaterally with no rales or rhonchi. Cardio: Regular rate and rhythm, no murmurs Abd: Soft, non tender, non distended. Normal bowel sounds Skin: No petechiae or rashes Back: No midline or flank tenderness Ext: No cyanosis, 3+ bilateral lower extremity edema, nontender to palpation. Neur: Awake and alert, oriented, normal speech, no facial asymmetry, strength and sensations grossly intact Psych: Normal Mood and Affect Result Diagram: 08/22/18211608/22/182116 Results 24 hrs Laboratory Tests Test 08/22/18 21:17 08/22/18 21:31 08/22/18 22:49 08/23/18 00:38 White Blood 7.6 10^3/ul Count Red Blood Count 4.36 10^6/ul Hemoglobin 13.3 g/dl Hematocrit 38.9 % Mean Corpuscular 89.2 fl Volume Mean Corpuscular 30.5 pg Hemoglobin Mean Corpuscular 34.2 g/dl Hemoglobin Tisha nt Red Cell 13.4 % Distribution Width Platelet Count 184 10^3/UL Mean Platelet 11.6 fl Volume Immature 0.300 % Granulocytes % Neutrophils % 68.2 % Lymphocytes % 18.6 % Monocytes % 11.5 % Eosinophils % 0.9 % Basophils % 0.5 % Nucleated Red 0.0 /100WBC Blood Cells % Immature 0.020 10^3/ul Granulocytes # Neutrophils # 5.2 10^3/ul Lymphocytes # 1.4 10^3/ul Monocytes # 0.9 10^3/ul Eosinophils # 0.1 10^3/ul Basophils # 0.0 10^3/ul Nucleated Red 0.0 10^3/ul Blood Cells # Sodium Level 138 mmol/L Potassium Level 4.3 mmol/L Chloride Level 104 mmol/L Carbon Dioxide 23 mmol/L Level Anion Gap 11 Blood Urea 27 mg/dl Nitrogen Creatinine 1.12 mg/dl Est Glomerular mL/min Filtrat Rate mL/min Glucose Level 46 mg/dl Calcium Level 9.7 mg/dl Total Bilirubin 0.3 mg/dl Direct Bilirubin 0.00 mg/dl Indirect 0.3 mg/dl Bilirubin Aspartate Amino 40 IU/L Transf (AST/SGOT ) Alanine 33 IU/L Aminotransferase (ALT/SGPT) Alkaline 58 IU/L Phosphatase Troponin I 0.021 ng/ml B-Type 60909 PG/ML Natriuretic Peptide Total Protein 7.3 g/dl Albumin 4.0 g/dl Blood Gas Blood venous Blood arterial Specimen Source Arterial Blood 08/22/2018 9:35:0 08/23/2018 12:40: Date Drawn 2 PM 58 AM Arterial Blood VENOUS LINE Right Radial Gas Puncture Site Humberto Test N/A ACCEPTAB Venous Blood pH 7.436 Venous Blood 34.4 mmHG pCO2 (Temp Corrected) Venous Blood pO2 57.9 mmHG (Temp Corrected) Venous Blood 22.6 mmol/L HCO3 Venous Blood 89.2 mmHG Oxygen Saturation Venous Blood -1.0 mmol/L Base Excess Venous Blood 13.1 g/dl Total Hemoglobin Venous Blood 88.8 % Oxyhemoglobin Venous Blood 0.2 % Methemoglobin Carboxyhemoglobi 0.2 % n Blood Gas 37.0 C 37.0 C Temperature Blood Gas Actual 18 24 Respiration Rate Blood Gas ROOM AIR MASK - BIPAP Modality FiO2 21.0 % 45.0 % Blood Gas D NAFISA PRACTICAL NURSE CLINICAL COORDINATOR D NAFISA PRACTICAL NURSE CLINICAL COORDINATOR Notified Whom Blood Gas 08/22/2018 9:41:2 08/23/2018 12:49: Notified Time 4 PM 25 AM Bedside Glucose 50 mg/dL Arterial Blood 7.396 pH (Temp corrected) Arterial Blood 40.2 mmhg pCO2 (Temp correct) Arterial Blood 96.1 mmHG pO2 (Temp corrected) Arterial Blood 24.1 mmol/L HCO3 Arterial Blood -0.6 mmol/L Base Excess Arterial Blood 96.5 mmHG Oxygen Saturatio n Arterial 0.1 % Blood Carboxyhem oglobin Arterial Blood 0.3 % Methemoglobin Blood Gas A-a O2 179.0 mmHg Differential Oxyhemoglobin 96.1 % Percent Blood Gas 16.0 Respiration Rate Blood Gas 15/5 IPAP/EPAP Ratio Current Medications Medications Dose Sig/Annemarie Start Time Status Last (Trade) Ordered Route PRN Stop Time Admin Dose Reason Admin Dextrose 50 ml ONCE STAT 08/22/18 DC 08/22/18 (D50w IV 22:52 08/22/18 23:08 Syringe) 22:53 Furosemide 20 mg ONCE ONCE 08/23/18 DC 08/23/18 (Lasix) IV 00:00 08/23/18 00:19 00:01 Ondansetron 4 mg ER BRIDGE 08/23/18 HCl (Zofran PRN IV 00:00 08/23/18 Inj) NAUSEA/VOMITI 23:59 NG 650 mg ER BRIDGE 08/23/18 Acetaminophen PRN PO 00:00 08/23/18 (Tylenol .MILD PAIN 23:59 Tab) 1-3 OR TEMP Lorazepam 2 mg STK-MED 08/22/18 DC (Ativan) ONCE .ROUTE 23:56 08/22/18 23:57 Procedures/MDM EMERGENT LABS AND DIAGNOSTIC STUDIES: Lab Results above were reviewed and interpreted by me. CBC: no anemia or evidence of infection CMP: Hypoglycemia with elevated BUN, likely due to poor p.o. intake and dehydration. No evidence of electrolyte abnormality, renal failure, or liver failure Troponin within normal limits, not indicative of cardiac ischemia BNP: significantly elevated 12-lead EKG was interpreted by Angelica Joe MD: Sinus rhythm with PACs Left axis deviation Left bundle branch block No acute ST or T wave changes suggestive of acute ischemia or STEMI. Radiology Results as interpreted by Radiology below were reviewed by Benito Joe MD: Chest x-ray: Cardiomegaly and pulmonary vascular congestion with bilateral interstitial and lower lobe infiltrates and pleural effusions. Initial Nursing notes reviewed. Previous Medical Records requested via the Electronic Health Record. EMERGENCY DEPARTMENT COURSE / MEDICAL DECISION MAKING: Patient is presenting with severe shortness of breath, significantly worsening. He is satting normally on supplemental oxygen. Chest x-ray does show worsening of his vascular congestion with interstitial fluid and effusions. He was noted to be hypoglycemic, for which dextrose was given IV. After some time, the patient acutely has shortness of breath and required BiPAP for a short period of time. I spoke with Dr. Barron. I think the patient requires admission for further symptomatic stabilization. Lasix IV given. Critical Care Time: 40 minutes Treatments/Evaluations: Close monitoring and treatment of unstable vital signs, cardiorespiratory, and neurologic status, while maintaining tight balance of fluid, respiratory, and cardiac interventions. This time includes discussing the case with the patient and the patients family. This time does not include all procedures stated elsewhere in this record. This time also includes reviewing old records, labs and radiological studies. This time includes examining and re- examining the patient. Additionally, this time also includes arranging care with admitting and consulting physicians. Accepting Care Team: Current data and ongoing care discussed. Time: Time of admission Primary Provider: Dr. Beatrice Man Diagnosis: Primary Impression: Acute and chronic respiratory failure with hypoxia Additional Impressions: Dyspnea Dyspnea type: unspecified Qualified Codes: R06.00 - Dyspnea, unspecified Hypoglycemia Prerenal azotemia Condition: Serious MARK JOE MD Aug 23, 2018 00:05
[2018-08-23] MEDS ORDERED: DEXTROSE 50% 50 ML SYRINGE IV PRN ×2 (04:00)
[2018-08-23] MEDS ORDERED: GLUCOSE GEL 15 GRAM TUBE BUCCAL PRN (04:00)
[2018-08-23] MEDS ORDERED: GLUCOSE GEL 15 GRAM TUBE PO PRN ×2 (04:00)
[2018-08-23] MEDS ORDERED: GLUCAGON 1 MG INJ IM PRN (04:00)
[2018-08-23] MEDS: FUROSEMIDE 40 MG INJ IV SCH ×2 (05:50→17:41)
[2018-08-23] MEDS: LEVOTHYROXINE 50 MCG TAB PO SCH (06:42)
[2018-08-23] MEDS ORDERED: glipiZIDE 10 MG TAB PO SCH (07:00)
[2018-08-23] MEDS: INSULIN ASPART [NOVOLOG] 3 ML PEN SC SCH ×4 (08:00→21:00)
[2018-08-23] MEDS: metFORMIN 500 MG TAB PO SCH ×2 (08:32→17:44)
[2018-08-23] MEDS: FINASTERIDE 5 MG TAB PO SCH (08:32)
[2018-08-23] MEDS: NICOTINE (21 MG/24 HR) PATCH TRANSDERM SCH (08:32)
[2018-08-23] MEDS: TIOTROPIUM 18 MCG CAPSULE INHA DEV INH SCH (08:32)
[2018-08-23] MEDS: FLUTICASONE/VILANTEROL 100-25 INH SCH (08:33)
[2018-08-23] MEDS: POTASSIUM CHLORIDE (SR) 20 MEQ TAB PO SCH ×2 (10:17→22:22)
[2018-08-23] MEDS ORDERED: LIDOCAINE 1% (MPF) 5 ML VIAL ONE (13:14)
--- NOTE | 2018-08-23 16:16 | HP ---
DATE OF ADMISSION: 08/22/2018 CHIEF COMPLAINT: Severe shortness of breath. HISTORY OF PRESENT ILLNESS: This is an 87-year-old male with stage IV lung cancer, COPD, and prostat e cancer, presented to emergency room with complaint of progressive shortness of breath and dyspnea o n exertion. The patient was evaluated by pilot control operator helper on 08/14/2018. He was found to have a modera te sized right-sided pleural effusion. Thoracentesis was recommended at that time. The patient fabricio es any chest pain. PAST MEDICAL HISTORY: 1. Stage IV lung cancer. 2. Malignant pleural effusion. 3. COPD. SOCIAL HISTORY: The patient has a remote history of smoking for 79 years. No alcohol use. He lives at home with his and daughter. PHYSICAL EXAMINATION: GENERAL: Well-developed, well-nourished elderly male who is in mild respiratory distress. VITAL SIGNS: Stable. He is afebrile. NECK: Supple. No JVD, no carotid bruits. LUNGS: Decreased breath sounds at the bases, diffuse rhonchi. CARDIAC: Regular rate and rhythm. No murmurs, rubs or gallops. ABDOMEN: Soft, nontender, nondistended, normoactive bowel sounds. EXTREMITIES: Mild edema. NEUROLOGICAL: Grossly nonfocal. LABORATORY DATA: CBC is within normal limits. BNP is elevated at 16,700. Basic metabolic panel is normal except glucose of 46. IMAGING: Chest x-ray shows cardiomegaly and pulmonary vascular congestion with bilateral interstitia l and lower lobe infiltrate and pleural effusions. ASSESSMENT: An 87-year-old male with: 1. Acute respiratory distress. 2. Malignant right pleural effusion. 3. Stage IV lung cancer. 4. Chronic obstructive pulmonary disease. 5. History of heavy tobacco use. 6. History of prostate cancer. 7. Bony metastasis. PLAN: 1. Place in Med/Surg observation. 2. Proceed with right-sided thoracentesis. 3. Diuresis. 4. Plan of care was discussed with the patient and family members at the bedside. Dictated By: JESSICA PARKER/OMAR Conf#: [id number] DID#: [id number]
[2018-08-23] MEDS: ALPRAZOLAM 0.5 MG TAB PO PRN (18:49)
[2018-08-23] MEDS ORDERED: TERAZOSIN 2 MG CAP PO SCH (21:00)
[2018-08-24] VITALS: PULSE 81
[2018-08-24 00:30] VITALS: BP 110/59; PULSE 89; RESP 18
[2018-08-24] MEDS ORDERED: ACCU-CHEK XX SCH (02:00)
[2018-08-24 04:00] VITALS: PULSE 96
[2018-08-24 04:13] VITALS: BP 112/59; PULSE 78; RESP 18
[2018-08-24] MEDS: FUROSEMIDE 40 MG INJ IV SCH (05:15)
[2018-08-24] MEDS: ALPRAZOLAM 0.5 MG TAB PO PRN (05:15)
[2018-08-24] MEDS: LEVOTHYROXINE 50 MCG TAB PO SCH (05:43)
[2018-08-24 07:22] VITALS: BP 113/62; PULSE 64; RESP 20
[2018-08-24] MEDS: INSULIN ASPART [NOVOLOG] 3 ML PEN SC SCH (07:56)
[2018-08-24] MEDS: FINASTERIDE 5 MG TAB PO SCH (07:57)
[2018-08-24] MEDS: POTASSIUM CHLORIDE (SR) 20 MEQ TAB PO SCH (07:57)
[2018-08-24] MEDS: metFORMIN 500 MG TAB PO SCH (07:57)
[2018-08-24] MEDS: TIOTROPIUM 18 MCG CAPSULE INHA DEV INH SCH (07:57)
[2018-08-24] MEDS: FLUTICASONE/VILANTEROL 100-25 INH SCH (07:58)
[2018-08-24] MEDS: NICOTINE (21 MG/24 HR) PATCH TRANSDERM SCH (07:58)
[2018-08-24 08:15] VITALS: PULSE 96
[2018-08-24] MEDS ORDERED: FURO40TA4 PO (09:30)
[2018-08-24] MEDS ORDERED: POTA10TA37 PO (09:30)
--- NOTE | 2018-08-24 09:31 | PDOCDIS ---
Discharge Instructions CONDITION [id number] Patient Condition: [id number] Fair HOME CARE INSTRUCTIONS: [id number] Diet Instructions: [id number] FOLLOW UP/APPOINTMENTS Follow-up Plan pcp 1 week JESSICA IGNACIO MD Aug 24, 2018 09:31
--- NOTE | 2018-08-24 15:00 | DS ---
DATE OF ADMISSION: 08/22/2018 DATE OF DISCHARGE: 08/24/2018 DISCHARGE DIAGNOSES: 1. Acute respiratory distress, resolved. 2. Stage IV lung cancer. 3. Malignant right pleural effusion. 4. Status post thoracentesis with removal of 1 liter of fluid. 5. Congestive heart failure exacerbation. 6. History of prostate cancer. 7. History of heavy tobacco use. 8. Bony metastasis. 9. Anxiety disorder. PROCEDURES DURING HOSPITALIZATION: Thoracentesis. HOSPITAL COURSE: An 87-year-old gentleman with stage IV lung cancer, COPD and prostate cancer, prese nted to emergency room with complaint of progressive shortness of breath and dyspnea on exertion. Th e patient had been diagnosed with malignant right pleural effusion prior to admission. He underwent right-sided thoracentesis. One liter of this pleural fluid was removed. The patient reported signif icant improvement in his symptoms following the procedure. He also received IV Lasix. His bilateral lower extremity edema resolved. His daughter was concerned about his swallowing. However, I asked the patient to drink water without any problem. He had 90% of his breakfast on the day of discharge. He is under palliative care at [facility]. The patient is a hospice candidate. He was discharged home on Lasix. I ordered home health nu rse and home health physical therapy. MEDICATIONS ON DISCHARGE: 1. Finasteride 5 mg daily. 2. Glipizide 20 mg daily. 3. Levothyroxine 50 mcg daily. 4. Metformin 1000 mg b.i.d. 5. Nicotine patch 21 mg daily. 6. Terazosin 2 mg at bedtime. 7. Spiriva 1 inhalation daily. 8. Lasix 40 mg daily. 9. Potassium chloride 10 mEq daily. FOLLOWUP: Follow up with PCP in 1 week. Dictated By: JESSICA PARKER/OMAR Conf#: [id number] DID#: [id number]
== END 2018-08-24 11:05 | disposition home health service (06) | DRG 181 ==
LOC: E/R 20:07 → 6WM 23:51 → CANRESERV 08-23 00:36
PROVIDERS: ADMIT Internal Medicine; ATTEND Internal Medicine
PROC: 4A133R1 Monitoring of Arterial Saturation, Peripheral, Percutaneous Approach (ICD-10-PCS; 2018-08-22)
PROC: 0W993ZZ Drainage of Right Pleural Cavity, Percutaneous Approach (ICD-10-PCS; principal; 2018-08-23)
DX: C78.00 Secondary malignant neoplasm of unspecified lung (principal); J91.0 Malignant pleural effusion; C79.51 Secondary malignant neoplasm of bone; F03.90 Unspecified dementia, unspecified severity, without behavioral disturbance, psychotic disturbance, mood disturbance, and anxiety; J44.9 Chronic obstructive pulmonary disease, unspecified; R06.03 Acute respiratory distress; I50.9 Heart failure, unspecified; Z85.46 Personal history of malignant neoplasm of prostate; Z87.891 Personal history of nicotine dependence
CPT/HCPCS: 36415; 36600; 71045; 76942; 80048; 80076; 82803; 82962; 83880; 84484; 85025; 85610; 93005; 94660; 96374; J1815; J1940; J2060

== ENCOUNTER 2018-11-18 14:09 | Inpatient (IN) | payer BC ==
[~2018-11-18] VITALS: Ht 172.7 cm; Wt 74.4 kg
[~2018-11-18 14:09] MED LIST changes: +FURO40TA4 PO; -LEVO500T48 PO; +POTA10TA37 PO
[2018-11-18] MEDS ORDERED: TERA2CAP3 PO (16:05)
[2018-11-18] MEDS ORDERED: PRED5TAB PO (16:06)
[2018-11-18] MEDS ORDERED: OMEP20CA16 PO (16:06)
[2018-11-18] MEDS ORDERED: LEVO50TA7 PO (16:07)
[2018-11-18] MEDS ORDERED: FINA5TAB4 PO (16:08)
[2018-11-18] MEDS ORDERED: LISI2.5T59 PO (16:09)
[2018-11-18] MEDS ORDERED: SOD CHLORIDE 0.9% 500 ML IV STA (16:33)
[2018-11-18] MEDS ORDERED: BICA50TA5 PO (17:00)
[2018-11-18] MEDS ORDERED: ONDANSETRON 4 MG INJ IV PRN ×2 (19:00)
[2018-11-18] MEDS ORDERED: LISINOPRIL 5 MG TAB PO PRN (19:00)
[2018-11-18] MEDS ORDERED: ACETAMINOPHEN 325 MG TAB PO PRN (19:00)
[2018-11-18] MEDS ORDERED: ZOLPIDEM 5 MG TAB PO PRN (19:00)
--- NOTE | 2018-11-18 19:21 | ERD ---
ER Documentation Chief Complaint Chief Complaint FEELING WEAK , HAS STAGE IV PANCREATIC CA HPI 88-year-old male with a history of metastatic prostate cancer and COPD presenting with complaints of chest pain that started around 1 AM radiating to his back. He describes it as an aching pain. He does have associated mild shortness of breath. No fevers or chills. He does have a wet cough which has been getting worse per the daughter at bedside. Denies any associated abdominal pain, nausea, vomiting, leg swelling. ROS All systems reviewed and are negative except as per history of present illness. Medications Home Meds Active Scripts Potassium Chloride* (K-Dur*) 10 Meq Tab.prt.sr, 10 MEQ PO DAILY for 30 Days, #30 TAB 1 Refill Prov:JESSICA IGNACIO MD 08/24/18 Furosemide* (Furosemide*) 40 Mg Tablet, 40 MG PO DAILY for 30 Days, #30 TAB 1 Refill Prov:JESSICA IGNACIO MD 08/24/18 Fluticasone-Vilanterol (Breo Ellipta Inhaler) 100-25 Mcg/Actuation Aer.pow.ba, 1 INH INH DAILY, #1 INHALER 3 Refills Prov:DEION GERMAIN 07/13/18 Tiotropium [place]* (Spiriva*) 18 Mcg Cap.w.dev, 1 INH INH DAILY, #1 INHALER 3 Refills Prov:DEION GERMAIN 07/13/18 Metformin Hcl* (Metformin Hcl*) 1,000 Mg Tablet, 1000 MG PO WITH BREAKFAST DINNE, #60 TAB resume on 07/15 Prov:DEION GERMAIN 07/13/18 Reported Medications Bicalutamide* (Casodex*) 50 Mg Tablet, 50 MG PO DAILY, TAB 11/18/18 Lisinopril* (Lisinopril*) 2.5 Mg Tablet, 2.5 MG PO DAILY PRN for NEEDED, #30 TAB 11/18/18 Finasteride* (Finasteride*) 5 Mg Tablet, 5 MG PO DAILY, TAB 11/18/18 Levothyroxine Sodium* (Levothyroxine Sodium*) 50 Mcg Tablet, 50 MCG PO BEFORE BREAKFAST, #30 TAB 11/18/18 Omeprazole* (Omeprazole*) 20 Mg Capsule.dr, 20 MG PO DAILY, #30 CAP 11/18/18 Prednisone* (Prednisone*) 5 Mg Tab, 5 MG PO BID, TAB 11/18/18 Terazosin Hcl* (Terazosin Hcl*) 2 Mg Capsule, 2 MG PO BID, CAP 11/18/18 Discontinued Reported Medications Levothyroxine Sodium* (Levothyroxine Sodium*) 50 Mcg Tablet, 50 MCG PO BEFORE BREAKFAST, #30 TAB 02/25/18 Glipizide* (Glipizide*) 10 Mg Tablet, 20 MG PO AC BREAKFAST DINNER, TAB 02/25/18 Finasteride* (Finasteride*) 5 Mg Tablet, 5 MG PO DAILY, TAB 02/25/18 Terazosin Hcl* (Terazosin Hcl*) 2 Mg Capsule, 4 MG PO QHS, CAP 02/25/18 Discontinued Scripts Nicotine* (Nicotine* Patch) 21 mg/day Patch, 1 PATCH TRANSDERM DAILY for 30 Days Prov:DEION GERMAIN F 07/13/18 Allergies Allergies: Coded Allergies: No Known Allergy (Unverified , 11/18/18) PMhx/Soc History of Surgery: No Anesthesia Reaction: No Hx Neurological Disorder: No Hx Respiratory Disorders: Yes (sob, asthma, emphysema, copd, lung ca) Hx Cardiac Disorders: No Hx Psychiatric Problems: No Hx Miscellaneous Medical Probl: No Hx Alcohol Use: No Hx Substance Use: No Hx Tobacco Use: No (quit 1 month ago) Smoking Status: Never smoker FmHx Family History: No diabetes Physical Exam Vitals Vital Signs Date Temp Pulse Resp B/P (MAP) Pulse Ox O2 O2 Flow FiO2 Time Delivery Rate 11/18/18 106 18 106/83 100 Room Air 18:58 (91) 11/18/18 98.7 101 18 106/83 99 Nasal 2.0 18:24 (91) Cannula 11/18/18 Nasal 2 15:35 Cannula 11/18/18 99.3 103 18 115/68 99 14:16 (84) Physical Exam Const: No acute distress Head: Atraumatic Eyes: Normal Conjunctiva ENT: Dry mucous membranes. Normal External Ears, Nose and Mouth. Neck: Full range of motion. No meningismus. No JVD Resp: Clear to auscultation bilaterally Cardio: Irregular rhythm, tachycardic, no murmurs. 2+ distal pulses in all 4 extremities Abd: Soft, non tender, non distended. No pulsatile abdominal mass. Normal bowel sounds Skin: No petechiae or rashes Back: No midline or flank tenderness Ext: No cyanosis, or edema. No calf tenderness Neur: Awake and alert, oriented, normal speech, no facial asymmetry, strength and sensations intact in all 4 extremities Psych: Normal Mood and Affect Result Diagram: 11/18/18 1516 11/18/18 1516 Results 24 hrs Laboratory Tests Test 11/18/18 15:16 White Blood Count 9.7 10^3/ul Red Blood Count 3.73 10^6/ul Hemoglobin 11.6 g/dl Hematocrit 34.1 % Mean Corpuscular Volume 91.4 fl Mean Corpuscular Hemoglobin 31.1 pg Mean Corpuscular Hemoglobin Concent 34.0 g/dl Red Cell Distribution Width 13.7 % Platelet Count 170 10^3/UL Mean Platelet Volume 10.2 fl Immature Granulocytes % 0.500 % Neutrophils % 79.4 % Lymphocytes % 7.9 % Monocytes % 11.4 % Eosinophils % 0.5 % Basophils % 0.3 % Nucleated Red Blood Cells % 0.0 /100WBC Immature Granulocytes # 0.050 10^3/ul Neutrophils # 7.7 10^3/ul Lymphocytes # 0.8 10^3/ul Monocytes # 1.1 10^3/ul Eosinophils # 0.1 10^3/ul Basophils # 0.0 10^3/ul Nucleated Red Blood Cells # 0.0 10^3/ul Sodium Level 136 mmol/L Potassium Level 4.0 mmol/L Chloride Level 98 mmol/L Carbon Dioxide Level 29 mmol/L Anion Gap 9 Blood Urea Nitrogen 59 mg/dl Creatinine 1.35 mg/dl Est Glomerular Filtrat Rate mL/min mL/min Glucose Level 196 mg/dl Calcium Level 9.2 mg/dl Troponin I 0.028 ng/ml Current Medications Medications Dose Sig/Annemarie Start Time Status Last (Trade) Ordered Route PRN Stop Time Admin Dose Reason Admin Sodium 500 ml @ Q1H STAT 11/18/18 DC 11/18/18 Chloride 500 mls/hr IV 16:33 16:52 11/18/18 17:32 Ondansetron 4 mg ER BRIDGE 11/18/18 HCl (Zofran PRN IV 19:00 Inj) NAUSEA/VOMITI 11/19/18 18:59 NG 650 mg ER BRIDGE 11/18/18 Acetaminophen PRN PO 19:00 (Tylenol .MILD PAIN 11/19/18 18:59 Tab) 1-3 OR TEMP 50 mg DAILY PO 11/19/18 Bicalutamide 09:00 (Casodex) Finasteride 5 mg DAILY PO 11/19/18 (Proscar) 09:00 1 inh DAILY INH 11/19/18 Fluticasone/ 09:00 Vilanterol (Breo Ellipta 100-25 Mcg Inh) Furosemide 40 mg DAILY PO 11/19/18 (Lasix) 09:00 50 mcg BEFORE 11/19/18 Levothyroxine BREAKFAST 07:00 Sodium PO (Synthroid) Lisinopril 2.5 mg DAILY PRN 11/18/18 (Zestril) PO SBP>160 19:00 Metformin 1,000 mg WITH 11/19/18 HCl BREAKFAST 08:00 (Glucophage) DINNE PO Potassium 10 meq DAILY PO 11/19/18 UNV Chloride 09:00 (Klor-Con 10) Terazosin 2 mg BID PO 11/18/18 UNV HCl 21:00 (Hytrin) Tiotropium 1 inh DAILY INH 11/19/18 UNV [place] 09:00 (Spiriva) Zolpidem 5 mg HS 11/18/18 UNV Tartrate REPEAT X 1 19:00 (Ambien) PRN PO INSOMNIA Ondansetron 4 mg Q4 PRN IV 11/18/18 UNV HCl (Zofran nausea 19:00 Inj) Procedures/MDM EMERGENT LABS AND DIAGNOSTIC STUDIES: Lab Results above were reviewed and interpreted by me. CBC: no anemia or evidence of infection BMP: Acute elevation of BUN and creatinine, consistent with acute renal insufficiency. No evidence of clinically significant electrolyte abnormality, acidosis, hypoglycemia Troponin within normal limits, not indicative of cardiac ischemia Lactate within normal limits without evidence of sepsis or tissue hypoperfusion 12-lead EKG was interpreted by Angelica Joe MD: Multifocal atrial tachycardia at 112 bpm Left bundle branch block No acute ST or T wave changes suggestive of acute ischemia or STEMI. Radiology Results as interpreted by Radiology below were reviewed by S. N. Ekmekjian, MD: Chest x-ray shows no acute abnormalities Initial Nursing notes reviewed. Previous Medical Records requested via the Electronic Health Record. EMERGENCY DEPARTMENT COURSE / MEDICAL DECISION MAKING: Patients symptoms are concerning for a cardiac etiology. Other etiologies considered were PE, aortic dissection, pneumonia, pneumothorax, esophageal rupture. EKG showed no acute ischemia. Initial troponin negative. CXR grossly unremarkable. However patient has an intermediate risk of adverse events. Plan to admit for further evaluation. He was given a small IV fluid bolus with improvement of his tachycardia. Low suspicion for dissection. I have a low suspicion for PE however the patient is at increased risk due to his malignancy. Given his acute renal failure, patient will likely need a ventilation perfusion scan. Further workup will be deferred to the inpatient team. Accepting Care Team: Current data and ongoing care discussed. Time: Time of admission Primary Provider: Dr. Igancio Of note, patient is DNR per the patient's daughter Departure Diagnosis: Primary Impression: Chest pain Chest pain type: unspecified Qualified Codes: R07.9 - Chest pain, unspecified Additional Impressions: Acute renal insufficiency Multifocal atrial tachycardia Condition: MARK Harris MD November 18, 2018 19:21
[2018-11-18] MEDS: TERAZOSIN 2 MG CAP PO SCH (21:44)
[2018-11-18 22:13] VITALS: PULSE 127
[2018-11-18 22:39] VITALS: BP 105/65; PULSE 72; RESP 18
[2018-11-19] VITALS (14 sets, daily range): BP systolic 84–133; BP diastolic 41–70; PULSE 40–117; RESP 16–20
[2018-11-19] MEDS: LEVOTHYROXINE 50 MCG TAB PO SCH (06:06)
[2018-11-19] MEDS: FINASTERIDE 5 MG TAB PO SCH (08:27)
[2018-11-19] MEDS: metFORMIN 500 MG TAB PO SCH ×2 (08:29→17:02)
[2018-11-19] MEDS: POTASSIUM CHLORIDE (SR) 10 MEQ TAB PO SCH (08:30)
[2018-11-19] MEDS: TERAZOSIN 2 MG CAP PO SCH ×2 (08:30→20:40)
[2018-11-19] MEDS: morphine 2 MG INJ IV PRN (08:45)
--- NOTE | 2018-11-19 08:54 | RADRPT ---
Vent Rate: 110 bpm RR Interval: 544 msec MT Interval: 163 msec QRS Duration: 167 msec QT Interval: 409 msec QTC Interval: 555 msec P-R-T [place]: 69 - -15 - 105 degrees Sinus tachycardia FREQUENT PAC Left bundle branch block... ABNORMAL ECG Electronically Signed By: Jimmie Trotter
[2018-11-19] MEDS ORDERED: FUROSEMIDE 40 MG TAB PO SCH (09:00)
[2018-11-19] MEDS ORDERED: METO-448 PO (10:51)
--- NOTE | 2018-11-19 10:52 | PDOCDIS ---
Discharge Instructions CONDITION [id number] Patient Condition: [id number] Good HOME CARE INSTRUCTIONS: [id number] Diet Instructions: [id number] FOLLOW UP/APPOINTMENTS Follow-up Plan pcp 1 week JESSICA IGNACIO MD November 19, 2018 10:52
[2018-11-19] MEDS: TIOTROPIUM 18 MCG CAPSULE INHA DEV INH SCH (11:24)
[2018-11-19] MEDS: FLUTICASONE/VILANTEROL 100-25 INH SCH (11:24)
[2018-11-19] MEDS: ALPRAZOLAM 0.5 MG TAB PO PRN (11:25)
[2018-11-19] MEDS: METOPROLOL 25 MG TAB PO SCH ×2 (11:27→20:41)
--- NOTE | 2018-11-19 11:39 | HP ---
DATE OF ADMISSION: 11/18/2018 CHIEF COMPLAINT: Chest pain. HISTORY OF PRESENT ILLNESS: An 88-year-old male with a history of metastatic prostate cancer, COPD, and type 2 diabetes mellitus, on palliative care, presented to emergency room with complaint of sharp left-sided chest pain that started about 1 in the morning and radiated to his back. He noted associ ated shortness of breath. There was no nausea, vomiting or diaphoresis. There were no exertional sy mptoms. The patient denies coughing. Initial chest x-ray did not show any acute cardiopulmonary dis ease. The patient apparently has history of metastatic prostate cancer to the bone and the lung. He had a pleural effusion during last admission and underwent thoracentesis. A 12-lead EKG showed mult ifocal atrial tachycardia. Serial troponins have been within normal limits. PAST MEDICAL HISTORY: 1. Metastatic prostate cancer. 2. Chronic obstructive pulmonary disease. 3. Hypertension. 4. Type 2 diabetes mellitus. 5. Hypothyroidism. MEDICATIONS PRIOR TO ADMISSION: 1. Casodex 50 mg daily. 2. Spiriva one inhalation daily. 3. Lisinopril 2.5 mg daily as needed. 4. 2 mg b.i.d. 5. Lasix 40 mg daily. 6. Potassium chloride 10 mEq daily. 7. Brio inhaler daily. 8. Omeprazole 20 mg daily. 9. Levothyroxine 50 mcg daily. 10. Metformin 1000 mg b.i.d. 11. Prednisone 5 mg daily. 12. Finasteride 5 mg daily. 13. The patient also receives Lupron shots every 3 months. SOCIAL HISTORY: The patient lives at home with his daughter. He denies tobacco or alcohol use. PHYSICAL EXAMINATION: GENERAL: Well-developed, well-nourished elderly male who is in no apparent distress. VITAL SIGNS: Stable. He is afebrile. HEENT: Extraocular muscles intact. Pupils equal and reactive to light bilaterally. Sclerae are ani cteric. Oropharynx is clear and moist. NECK: Supple, no JVD, no carotid bruits. LUNGS: Clear to auscultation bilaterally. CARDIAC: Rapid rate, with occasional ectopies. No murmurs or gallops. ABDOMEN: Soft, nontender, nondistended, normoactive bowel sounds. EXTREMITIES: No clubbing, cyanosis, or edema. NEUROLOGICAL: Grossly nonfocal. LABORATORY DATA: Basic metabolic panel is normal except a BUN of 59 and creatinine of 1.35, WBC is 9 .7, hemoglobin 11.6, platelet count 170,000. ASSESSMENT AND PLAN: 1. An 88-year-old male presenting with atypical chest pain. Acute myocardial infarction has been ru led out. 2. Multifocal atrial tachycardia. 3. COPD. 4. Prostate cancer with metastasis to the bone and lung. 5. Hypothyroidism. 6. Type 2 diabetes mellitus. PLAN: 1. Place in tele observation. 2. 2D echo. 3. Start Lopressor 25 mg b.i.d. 4. Resume previous home medications. 5. Cardiology consultation was requested. Dictated By: JESSICA PARKER/OMAR Conf#: [id number] DID#: [id number] CC: CASSIE GEE DO;*EndCC*
[2018-11-19] MEDS: BICALUTAMIDE 50 MG TAB PO SCH (12:15)
--- NOTE | 2018-11-19 12:43 | CONS ---
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 Symptoms are nonexertional. Serial cardiac enzymes are negative, ECG with left bundle branch block and frequent PACs -I will check d-dimer, chemistry panel and magnesium for today -Given borderline blood pressure and elevated BUN/creatinine, would hold diuretics currently -This was discussed with patient's daughter Marry over the phone [phone] Consultation Date/Type/Reason Admit Date/Time November 18, 2018 at 18:32 Type of Consult Cardiology Reason for Consultation Chest pain Date/Time of Note DATE: 11/19/18 TIME: 12:30 Hx of Present Illness This is an 88-year-old male with past medical history of prostate cancer with metastases, cardiomyopathy, tobacco use who presents with chest pain. Symptoms are bilateral chest and intermittent over the past few days. Symptoms of chest pain are sharp in nature and worse with deep inspiration. He denies any cough. Denies exertional chest pain. He does get intermittent shortness of breath at times. Denies any palpitations, dizziness or lightheadedness. He does feel weak. 12 point review of systems was performed with all pertinent positives and negatives mentioned above and all else is negative Past Medical History Prostate cancer Medical History: congestive heart failure, diabetes, hypertension Home Meds Active Scripts Metoprolol Tartrate* (Lopressor*) 25 Mg Tab, 25 MG PO BID for 30 Days, TAB 3 Refills Prov:JESSICA IGNACIO MD 11/19/18 Potassium Chloride* (K-Dur*) 10 Meq Tab.prt.sr, 10 MEQ PO DAILY for 30 Days, #30 TAB 1 Refill Prov:JESSICA IGNACIO MD 08/24/18 Furosemide* (Furosemide*) 40 Mg Tablet, 40 MG PO DAILY for 30 Days, #30 TAB 1 Refill Prov:JESSICA IGNACIO MD 08/24/18 Fluticasone-Vilanterol (Breo Ellipta Inhaler) 100-25 Mcg/Actuation Aer.pow.ba, 1 INH INH DAILY, #1 INHALER 3 Refills Prov:DEION GERMAIN 07/13/18 Tiotropium [place]* (Spiriva*) 18 Mcg Cap.w.dev, 1 INH INH DAILY, #1 INHALER 3 Refills Prov:DEION GERMAIN 07/13/18 Metformin Hcl* (Metformin Hcl*) 1,000 Mg Tablet, 1000 MG PO WITH BREAKFAST DINNE, #60 TAB resume on 07/15 Prov:DEION GERMAIN 07/13/18 Reported Medications Bicalutamide* (Casodex*) 50 Mg Tablet, 50 MG PO DAILY, TAB 11/18/18 Finasteride* (Finasteride*) 5 Mg Tablet, 5 MG PO DAILY, TAB 11/18/18 Levothyroxine Sodium* (Levothyroxine Sodium*) 50 Mcg Tablet, 50 MCG PO BEFORE BREAKFAST, #30 TAB 11/18/18 Omeprazole* (Omeprazole*) 20 Mg Capsule.dr, 20 MG PO DAILY, #30 CAP 11/18/18 Prednisone* (Prednisone*) 5 Mg Tab, 5 MG PO BID, TAB 11/18/18 Terazosin Hcl* (Terazosin Hcl*) 2 Mg Capsule, 2 MG PO BID, CAP 11/18/18 Discontinued Reported Medications Lisinopril* (Lisinopril*) 2.5 Mg Tablet, 2.5 MG PO DAILY PRN for NEEDED, #30 TAB 11/18/18 Levothyroxine Sodium* (Levothyroxine Sodium*) 50 Mcg Tablet, 50 MCG PO BEFORE BREAKFAST, #30 TAB 02/25/18 Glipizide* (Glipizide*) 10 Mg Tablet, 20 MG PO AC BREAKFAST DINNER, TAB 02/25/18 Finasteride* (Finasteride*) 5 Mg Tablet, 5 MG PO DAILY, TAB 02/25/18 Terazosin Hcl* (Terazosin Hcl*) 2 Mg Capsule, 4 MG PO QHS, CAP 02/25/18 Discontinued Scripts Nicotine* (Nicotine* Patch) 21 mg/day Patch, 1 PATCH TRANSDERM DAILY for 30 Days Prov:DEION GERMAIN 07/13/18 Medications Current Medications Ondansetron HCl (Zofran Inj) 4 mg ER BRIDGE PRN IV NAUSEA/VOMITING; Start 11/18/18 at 19:00; Stop 11/19/18 at 18:59 Acetaminophen (Tylenol Tab) 650 mg ER BRIDGE PRN PO .MILD PAIN 1-3 OR TEMP Last administered on 11/18/18 21:58; Admin Dose 650 MG; Start 11/18/18 at 19:00; Stop 11/19/18 at 18:59 Bicalutamide (Casodex) 50 mg DAILY PO Last administered on 11/19/18 12:15; Admin Dose 50 MG; Start 11/19/18 at 09:00 Finasteride (Proscar) 5 mg DAILY PO Last administered on 11/19/18 08:27; Admin Dose 5 MG; Start 11/19/18 at 09:00 Fluticasone/ Vilanterol (Breo Ellipta 100-25 Mcg Inh) 1 inh DAILY INH Last administered on 11/19/18 11:24; Admin Dose 1 INH; Start 11/19/18 at 09:00 Furosemide (Lasix) 40 mg DAILY PO Last administered on 11/19/18 08:29; Admin Dose 40 MG; Start 11/19/18 at 09:00 Levothyroxine Sodium (Synthroid) 50 mcg BEFORE BREAKFAST PO Last administered on 11/19/18 06:06; Admin Dose 50 MCG; Start 11/19/18 at 07:00 Metformin HCl (Glucophage) 1,000 mg WITH BREAKFAST DINNE PO Last administered on 11/19/18 08:29; Admin Dose 1,000 MG; Start 11/19/18 at 08:00 Potassium Chloride (Klor-Con 10) 10 meq DAILY PO Last administered on 11/19/18 08:30; Admin Dose 10 MEQ; Start 11/19/18 at 09:00 Terazosin HCl (Hytrin) 2 mg BID PO Last administered on 11/19/18 08:30; Admin Dose 2 MG; Start 11/18/18 at 22:00 Tiotropium [place] (Spiriva) 1 inh DAILY INH Last administered on 11/19/18 11:24; Admin Dose 1 INH; Start 11/19/18 at 09:00 Zolpidem Tartrate (Ambien) 5 mg HS MAY REPEAT X 1 PRN PO INSOMNIA; Start 11/18/18 at 19:00 Ondansetron HCl (Zofran Inj) 4 mg Q4H PRN IV nausea; Start 11/18/18 at 19:00 Morphine Sulfate (morphine) 2 mg Q4H PRN IV SEVERE PAIN LEVEL 7-10 Last administered on 11/19/18at 08:45; Admin Dose 2 MG; Start 11/19/18 at 09:00 Metoprolol Tartrate (Lopressor) 25 mg BID PO Last administered on 11/19/18at 11:27; Admin Dose 25 MG; Start 11/19/18 at 10:00 Alprazolam (Xanax) 0.5 mg Q4H PRN PO agitation Last administered on 11/19/18at 11:25; Admin Dose 0.5 MG; Start 11/19/18 at 11:30 Allergies: Coded Allergies: No Known Allergy (Unverified , 11/18/18) Family History Significant Family History: no pertinent family hx Social History Smoking Status: Former smoker Exam/Review of Systems Vital Signs Vitals Vital Signs Date Temp Pulse Resp B/P (MAP) Pulse Ox O2 O2 Flow FiO2 Time Delivery Rate 11/19/18 114 12:09 11/19/18 97.6 20 101/65 98 11:28 (77) 11/18/18 Nasal 23:30 Cannula 11/18/18 2.0 18:24 Exam Constitutional: alert (Able to answer questions and give some history but becomes confused at times, no apparent distress, following commands) Head: normocephalic Respiratory: other (Coarse breath sounds bilaterally, no wheezing) Cardiovascular: regular rate and rhythm (S1-S2 heard, occasional irregularities) Gastrointestinal: soft, non-tender, bowel sounds Extremities: edema (Trace) Labs Result Diagram: 11/18/18 1516 11/18/18 1516 Results 24hrs Laboratory Tests Test 11/18/18 15:16 11/19/18 00:15 11/19/18 05:36 11/19/18 08:44 White Blood Count 9.7 # Red Blood Count 3.73 L Hemoglobin 11.6 L Hematocrit 34.1 L Mean Corpuscular 91.4 Volume Mean Corpuscular 31.1 Hemoglobin Mean Corpuscular 34.0 Hemoglobin Concent Red Cell 13.7 Distribution Width Platelet Count 170 Mean Platelet Volume 10.2 Immature 0.500 H Granulocytes % Neutrophils % 79.4 H Lymphocytes % 7.9 L Monocytes % 11.4 H Eosinophils % 0.5 Basophils % 0.3 Nucleated Red Blood 0.0 Cells % Immature 0.050 H Granulocytes # Neutrophils # 7.7 H Lymphocytes # 0.8 Monocytes # 1.1 H Eosinophils # 0.1 Basophils # 0.0 Nucleated Red Blood 0.0 Cells # Sodium Level 136 Potassium Level 4.0 Chloride Level 98 Carbon Dioxide Level 29 Anion Gap 9 Blood Urea Nitrogen 59 H Creatinine 1.35 H Est Glomerular Filtrat Rate mL/min Glucose Level 196 Calcium Level 9.2 Troponin I 0.028 0.047 0.058 Bedside Glucose 150 Imaging Imaging ECG with sinus tachycardia with frequent PACs, ventricular rate 112 bpm, left bundle branch block with QRS 164 ms, nonspecific ST abnormalities Medications Medications Current Medications Ondansetron HCl (Zofran Inj) 4 mg ER BRIDGE PRN IV NAUSEA/VOMITING; Start 11/18/18 at 19:00; Stop 11/19/18 at 18:59 Acetaminophen (Tylenol Tab) 650 mg ER BRIDGE PRN PO .MILD PAIN 1-3 OR TEMP Last administered on 11/18/18 21:58; Admin Dose 650 MG; Start 11/18/18 at 19:00; Stop 11/19/18 at 18:59 Bicalutamide (Casodex) 50 mg DAILY PO Last administered on 11/19/18 12:15; A dmin Dose 50 MG; Start 11/19/18 at 09:00 Finasteride (Proscar) 5 mg DAILY PO Last administered on 11/19/18 08:27; Admin Dose 5 MG; Start 11/19/18 at 09:00 Fluticasone/ Vilanterol (Breo Ellipta 100-25 Mcg Inh) 1 inh DAILY INH Last administered on 11/19/18 11:24; Admin Dose 1 INH; Start 11/19/18 at 09:00 Furosemide (Lasix) 40 mg DAILY PO Last administered on 11/19/18 08:29; Admin Dose 40 MG; Start 11/19/18 at 09:00 Levothyroxine Sodium (Synthroid) 50 mcg BEFORE BREAKFAST PO Last administered on 11/19/18 06:06; Admin Dose 50 MCG; Start 11/19/18 at 07:00 Metformin HCl (Glucophage) 1,000 mg WITH BREAKFAST DINNE PO Last administered on 11/19/18 08:29; Admin Dose 1,000 MG; Start 11/19/18 at 08:00 Potassium Chloride (Klor-Con 10) 10 meq DAILY PO Last administered on 11/19/18 08:30; Admin Dose 10 MEQ; Start 11/19/18 at 09:00 Terazosin HCl (Hytrin) 2 mg BID PO Last administered on 11/19/18 08:30; Admin Dose 2 MG; Start 11/18/18 at 22:00 Tiotropium [place] (Spiriva) 1 inh DAILY INH Last administered on 11/19/18 11:24; Admin Dose 1 INH; Start 11/19/18 at 09:00 Zolpidem Tartrate (Ambien) 5 mg HS MAY REPEAT X 1 PRN PO INSOMNIA; Start 11/18/18 at 19:00 Ondansetron HCl (Zofran Inj) 4 mg Q4H PRN IV nausea; Start 11/18/18 at 19:00 Morphine Sulfate (morphine) 2 mg Q4H PRN IV SEVERE PAIN LEVEL 7-10 Last administered on 11/19/18 08:45; Admin Dose 2 MG; Start 11/19/18 at 09:00 Metoprolol Tartrate (Lopressor) 25 mg BID PO Last administered on 11/19/18 11:27; Admin Dose 25 MG; Start 11/19/18 at 10:00 Alprazolam (Xanax) 0.5 mg Q4H PRN PO agitation Last administered on 11/19/18 11:25; Admin Dose 0.5 MG; Start 11/19/18 at 11:30 Ty Deutsch DO November 19, 2018 12:42
[2018-11-19] MEDS ORDERED: SOD CHLORIDE 0.9% 500 ML IV ONE (16:00)
[2018-11-19] MEDS: SOD CHLORIDE 0.9% 1,000 ML IV SCH (16:50)
--- NOTE | 2018-11-19 21:09 | RADRPT ---
Echocardiogram Report Patient Name: PEDRO LUIS BLAKEPatient ID: [id number] : 1930 (88y 3m)Study Date: 11/19/2018 11:32:46 AM Gender: MAccession #: [id number] Tech: Renata Zarco [facility] Location: 61 Ref.Physician: JESSICA IGNACIO Height(Cm): BSA: Weight(Kg): Quality: AdequateOrder Physician: JESSICA IGNACIO Account #: Procedures: Echocardiographic Report: Transthoracic echocardiogram with complete 2D, M-Mode, and doppler examination. Indications: Chest Pain. Measurements: 2D/M Mode Doppler Measurement Value Normal Range Measurement Value Normal Range LVIDd 2D 6.2 [ 4.2 - 5.8 ] cm AV Peak Onesimo 1.5 [ 100.0 - 170.0 ] cm/sec LVIDs 2D 6.1 [ 2.5 - 4.0 ] cm AV Peak PG 9.0 [ 2.0 - 9.0 ] mmHg LVPWd 2D 0.9 [ 0.6 - 1.0 ] cm LVOT Peak [place] 0.7 [ 70.0 - 110.0 ] cm/sec IVSd 2D 1.0 [ 0.6 - 1.0 ] cm LVOT Peak PG 2.0 [ 2.0 - 6.0 ] mmHg AoR Diam 2D 2.8 [ 2.6 - 3.4 ] cm Lat E` Onesimo 0.1 [ 10.0 - 15.0 ] cm/sec EDV 2D 194.0 [ 62.0 - 150.0 ] ml ESV 2D 186.0 [ 21.0 - 61.0 ] ml EF 2D 4.1 [ 52.0 - 72.0 ] percent LA Dimen 2D 4.2 [ 3.0 - 4.0 ] cm Findings: Left Ventricle: Normal left ventricular cavity size. Mild enlargement of left ventricle cavity. Severe left ventricular systolic dysfunction. Ejection fraction is visually estimated at 30 %. Tissue Doppler/Mitral Doppler indices are consistent with impaired relaxation (Stage I diastolic dysfunction). Right Ventricle: Normal right ventricular size. Normal right ventricular systolic function. Left Atrium: There is mild enlargement of left atrium. Right Atrium: The right atrium is normal in size. Mitral Valve: Mitral valve leaflets appear mildly thickened. Mild mitral annular calcification. Mild to moderate mitral valve regurgitation. Aortic Valve: No significant aortic stenosis or insufficiency. Aortic cusps appear mildly calcified. Tricuspid Valve: Normal appearance and function of the tricuspid valve with trace physiologic regurgitation. Pulmonic Valve: Pulmonic valve not well visualized. Pericardium: Trivial pericardial effusion. Aorta: Normal aortic root. IVC: Normal size and normal respiratory collapse consistent with normal right atrial pressure. Conclusions: Normal left ventricular cavity size. Mild enlargement of left ventricle cavity. Severe left ventricular systolic dysfunction. Ejection fraction is visually estimated at 30 %. Tissue Doppler/Mitral Doppler indices are consistent with impaired relaxation (Stage I diastolic dysfunction). Normal right ventricular size. Normal right ventricular systolic function. There is mild enlargement of left atrium. The right atrium is normal in size. Mild to moderate mitral valve regurgitation. No significant aortic stenosis or insufficiency. Trivial pericardial effusion. Electronically Signed By: Ty Deutsch 2018-11-19 21:08:47 PDT
[2018-11-20] VITALS (13 sets, daily range): BP systolic 94–131; BP diastolic 51–67; PULSE 56–120; RESP 17–19
[2018-11-20] MEDS: morphine 2 MG INJ IV PRN (03:20)
[2018-11-20] MEDS: SOD CHLORIDE 0.9% 1,000 ML IV SCH ×3 (03:21→22:00)
[2018-11-20] MEDS ORDERED: SOD CHLORIDE 0.9% 250 ML IV ONE (06:00)
[2018-11-20] MEDS ORDERED: DIGOXIN 500 MCG INJ IV ONE (06:00)
[2018-11-20] MEDS: LEVOTHYROXINE 50 MCG TAB PO SCH (06:04)
[2018-11-20] MEDS: TIOTROPIUM 18 MCG CAPSULE INHA DEV INH SCH (08:48)
[2018-11-20] MEDS: FINASTERIDE 5 MG TAB PO SCH (08:48)
[2018-11-20] MEDS: METOPROLOL 25 MG TAB PO SCH ×2 (08:49→20:07)
[2018-11-20] MEDS: POTASSIUM CHLORIDE (SR) 10 MEQ TAB PO SCH (08:50)
[2018-11-20] MEDS: FLUTICASONE/VILANTEROL 100-25 INH SCH (08:50)
[2018-11-20] MEDS: BICALUTAMIDE 50 MG TAB PO SCH (08:59)
[2018-11-20] MEDS: metFORMIN 500 MG TAB PO SCH ×2 (09:00→17:22)
--- NOTE | 2018-11-20 09:39 | RADRPT ---
Vent Rate: 107 bpm RR Interval: 0 msec TN Interval: 0 msec QRS Duration: 162 msec QT Interval: 344 msec QTC Interval: 459 msec P-R-T [place]: 0 - -60 - 108 degrees Atrial fibrillation with rapid ventricular response Left axis deviation Left bundle branch block Abnormal ECG Electronically Signed By: Jimmie Trotter
[2018-11-20] MEDS: ALPRAZOLAM 0.5 MG TAB PO PRN (09:49)
[2018-11-20] MEDS ORDERED: ALPR0.5T6 PO (10:37)
[2018-11-20] MEDS ORDERED: AMIODARONE 200 MG TAB PO ONE (13:11)
--- NOTE | 2018-11-20 13:18 | CONS ---
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 Patient remains asymptomatic. Given borderline blood pressure, would start amiodarone. Would not use digoxin given his renal dysfunction. -Patient underwent VQ scan yesterday with low probably for pulmonary emboli. His chest discomfort does not appear cardiac in etiology. -We will request physical therapy to see the patient. I am concerned about him being a fall risk for anticoagulation. Consultation Date/Type/Reason Admit Date/Time November 18, 2018 at 18:32 Initial Consult Date Type of Consult Cardiology Date/Time of Note DATE: 11/20/18 TIME: 13:12 24 HR Interval Summary Free Text/Dictation Denies shortness of breath, palpitations. Having intermittent back and chest pain with deep inspiration Exam/Review of Systems Vital Signs Vitals Vital Signs Date Temp Pulse Resp B/P (MAP) Pulse Ox O2 O2 Flow FiO2 Time Delivery Rate 11/20/18 88 12:25 11/20/18 97.7 17 101/60 90 11:51 (74) 11/20/18 Nasal 04:12 Cannula 11/19/18 2.0 21:00 Intake and Output 11/19/18 11/19/18 11/20/18 1515:00 23:00 07:00 IntakeIntake Total 1350 ml 800 ml BalanceBalance 1350 ml 800 ml Exam Constitutional: alert (Following commands, no apparent distress) Head: normocephalic Respiratory: other (Coarse breath sounds bilaterally, no wheezing) Cardiovascular: irregular rhythm (S1-S2 heard) Gastrointestinal: soft, non-tender, bowel sounds Extremities: other (Trace edema) Labs Result Diagram: 11/20/18 1051 11/20/18 1051 Results 24hrs Laboratory Tests Test 11/19/18 13:45 11/19/18 17:01 11/20/18 08:43 11/20/18 10:51 D-Dimer 2859.42 H D-Dimer Comment Bedside Glucose 286 H 204 White Blood Count 9.2 Red Blood Count 3.32 L Hemoglobin 10.3 L Hematocrit 31.4 L Mean Corpuscular 94.6 Volume Mean Corpuscular 31.0 Hemoglobin Mean Corpuscular 32.8 Hemoglobin Concent Red Cell 13.7 Distribution Width Platelet Count 143 Mean Platelet Volume 10.9 H Immature 0.300 Granulocytes % Neutrophils % 74.4 Lymphocytes % 12.6 L Monocytes % 11.1 H Eosinophils % 1.3 Basophils % 0.3 Nucleated Red Blood 0.0 Cells % Immature 0.030 Granulocytes # Neutrophils # 6.8 Lymphocytes # 1.2 Monocytes # 1.0 H Eosinophils # 0.1 Basophils # 0.0 Nucleated Red Blood 0.0 Cells # Sodium Level 133 L Potassium Level 4.0 Chloride Level 100 Carbon Dioxide Level 27 Anion Gap 6 Blood Urea Nitrogen 50 H Creatinine 1.32 H Est Glomerular Filtrat Rate mL/min Glucose Level 201 Calcium Level 8.4 Magnesium Level 2.0 Thyroid Stimulating Pending Hormone (TSH) Medications Medications Current Medications Bicalutamide (Casodex) 50 mg DAILY PO Last administered on 11/20/18 08:59; Admin Dose 50 MG; Start 11/19/18 at 09:00 Finasteride (Proscar) 5 mg DAILY PO Last administered on 11/20/18 08:48; Admin Dose 5 MG; Start 11/19/18 at 09:00 Fluticasone/ Vilanterol (Breo Ellipta 100-25 Mcg Inh) 1 inh DAILY INH Last administered on 11/20/18 08:50; Admin Dose 1 INH; Start 11/19/18 at 09:00 Furosemide (Lasix) 40 mg DAILY PO Last administered on 11/19/18 08:29; Admin Dose 40 MG; Start 11/19/18 at 09:00; Status Hold Levothyroxine Sodium (Synthroid) 50 mcg BEFORE BREAKFAST PO Last administered on 11/20/18 06:04; Admin Dose 50 MCG; Start 11/19/18 at 07:00 Metformin HCl (Glucophage) 1,000 mg WITH BREAKFAST DINNE PO Last administered on 11/20/18 09:00; Admin Dose 1,000 MG; Start 11/19/18 at 08:00 Potassium Chloride (Klor-Con 10) 10 meq DAILY PO Last administered on 11/20/18 08:50; Admin Dose 10 MEQ; Start 11/19/18 at 09:00 Terazosin HCl (Hytrin) 2 mg BID PO Last administered on 11/19/18 20:40; Admin Dose 2 MG; Start 11/18/18 at 22:00; Status Hold Tiotropium [place] (Spiriva) 1 inh DAILY INH Last administered on 11/20/18 08:48; Admin Dose 1 INH; Start 11/19/18 at 09:00 Zolpidem Tartrate (Ambien) 5 mg HS MAY REPEAT X 1 PRN PO INSOMNIA; Start 11/18/18 at 19:00 Ondansetron HCl (Zofran Inj) 4 mg Q4H PRN IV nausea; Start 11/18/18 at 19:00 Morphine Sulfate (morphine) 2 mg Q4H PRN IV SEVERE PAIN LEVEL 7-10 Last admi nistered on 11/20/18 03:20; Admin Dose 2 MG; Start 11/19/18 at 09:00 Metoprolol Tartrate (Lopressor) 25 mg BID PO Last administered on 11/20/18 08:49; Admin Dose 25 MG; Start 11/19/18 at 10:00 Alprazolam (Xanax) 0.5 mg Q4H PRN PO agitation Last administered on 11/20/18 09:49; Admin Dose 0.5 MG; Start 11/19/18 at 11:30 Sodium Chloride 1,000 ml @ 100 mls/hr Q10H IV Last administered on 11/20/18 12:30; Admin Dose 100 MLS/HR; Start 11/19/18 at 16:00 Ty Deutsch DO November 20, 2018 13:18
[2018-11-20] MEDS ORDERED: MAGNESIUM SULFATE 1 GM/D5W 100 ML IVPB ONE (13:30)
[2018-11-20] MEDS ORDERED: LACTULOSE 30ML CUP PO PRN (14:00)
[2018-11-20] MEDS: AMIODARONE 200 MG TAB PO SCH (20:08)
[2018-11-21] VITALS (9 sets, daily range): BP systolic 105–131; BP diastolic 56–82; PULSE 51–107; RESP 16–18
--- NOTE | 2018-11-21 03:00 | DS ---
DATE OF ADMISSION: 11/20/2018 DATE OF DISCHARGE: 11/20/2018 DISCHARGE DIAGNOSES: 1. An 88-year-old male with atypical chest pain. 2. Widely metastatic prostate cancer. 3. Atrial fibrillation 4. Chronic obstructive pulmonary disease. 5. Hypothyroidism. 6. Type 2 diabetes mellitus. 7. Benign prostatic hypertrophy. 8. Dehydration, improved. HOSPITAL COURSE: An 88-year-old male with history of prostate cancer metastasized to bone and lung, presented to emergency room with complaint of sharp left-sided chest pain radiating to his back. This was pleuritic in nature. Acute RI was ruled out. A 2D echo has shown cardiomyopathy with EF of 35%. The patient was seen in consultation by the rough patcher, Dr. Deutsch. He was found to have rapid atrial fibrillation. VQ scan was obtained. There was low probability for PE. The patient was started on low dose Lopressor. I held the diuretics due to evidence of acute kidney injury and dehydration. He is in stable condition for discharge. He carries a DNR code status. His daughter requests a refill on Xanax to help him cope with symptoms of anxiety. DISPOSITION: Discharge home with home health nurse. MEDICATIONS ON DISCHARGE: 1. Xanax 0.5 mg q.4 hours p.r.n. 2. Lopressor 25 mg p.o. b.i.d. 3. Casodex 50 mg daily. 4. Finasteride 5 mg daily. 5. Breo 1 inhalation daily. 6. Levothyroxine 50 mcg daily. 7. Metformin 1000 mg b.i.d. 8. Omeprazole 20 mg daily. 9. Prednisone 5 mg daily. 10. Terazosin 2 mg daily. Discontinue: 1. Lasix. 2. Lisinopril. 3. Potassium. FOLLOWUP: Follow up with PCP in 1 week. Dictated By: JESSICA PARKER/OMAR Conf#: [id number] DID#: [id number] CC: CASSIE DEUTSCH DO;*EndCC* MTDD
[2018-11-21] MEDS: SOD CHLORIDE 0.9% 1,000 ML IV SCH (03:15)
[2018-11-21] MEDS: LEVOTHYROXINE 50 MCG TAB PO SCH (05:27)
--- NOTE | 2018-11-21 07:08 | RADRPT ---
Vent Rate: 94 bpm RR Interval: 0 msec VT Interval: 0 msec QRS Duration: 156 msec QT Interval: 392 msec QTC Interval: 490 msec P-R-T [place]: 0 - 11 - 161 degrees Atrial fibrillation with premature ventricular or aberrantly conducted complexes Left bundle branch block Abnormal ECG Electronically Signed By: Jimmie Trotter
[2018-11-21] MEDS: FINASTERIDE 5 MG TAB PO SCH (08:33)
[2018-11-21] MEDS: METOPROLOL 25 MG TAB PO SCH (08:33)
[2018-11-21] MEDS: POTASSIUM CHLORIDE (SR) 10 MEQ TAB PO SCH (08:34)
[2018-11-21] MEDS: AMIODARONE 200 MG TAB PO SCH ×2 (08:34→14:29)
[2018-11-21] MEDS: BICALUTAMIDE 50 MG TAB PO SCH (08:38)
[2018-11-21] MEDS: TIOTROPIUM 18 MCG CAPSULE INHA DEV INH SCH (09:00)
[2018-11-21] MEDS: FLUTICASONE/VILANTEROL 100-25 INH SCH (09:00)
[2018-11-21] MEDS: metFORMIN 500 MG TAB PO SCH ×2 (09:10→17:59)
[2018-11-21] MEDS ORDERED: AMIO200T4 PO (10:10)
--- NOTE | 2018-11-21 10:28 | PN ---
Date/Time of Note Date/Time of Note DATE: 11/21/18 TIME: 10:26 Subjective Doing well. No new complaints. Objective Vitals Vital Signs Date Temp Pulse Resp B/P (MAP) Pulse Ox O2 O2 Flow FiO2 Time Delivery Rate 11/21/18 95 08:59 11/21/18 Nasal 2.0 08:30 Cannula 11/21/18 98.5 17 130/67 95 07:44 (88) Intake and Output 11/20/18 11/20/18 11/21/18 1515:00 23:00 07:00 IntakeIntake Total 1200 ml 1100 ml OutputOutput Total 500 ml 200 ml BalanceBalance 700 ml 900 ml Lungs with diffuse expiratory wheezes. Crackles at the bases Cardiac regular rate and rhythm Abdomen soft nontender nondistended normoactive bowel sounds No edema Nonfocal Results Result Diagram: 11/20/18 1051 11/20/18 1051 Medications Medications Current Medications Bicalutamide (Casodex) 50 mg DAILY PO Last administered on 11/21/18at 08:38; Admin Dose 50 MG; Start 11/19/18 at 09:00 Finasteride (Proscar) 5 mg DAILY PO Last administered on 11/21/18 08:33; Admin Dose 5 MG; Start 11/19/18 at 09:00 Fluticasone/ Vilanterol (Breo Ellipta 100-25 Mcg Inh) 1 inh DAILY INH Last administered on 11/20/18 08:50; Admin Dose 1 INH; Start 11/19/18 at 09:00 Furosemide (Lasix) 40 mg DAILY PO Last administered on 11/19/18 08:29; Admin Dose 40 MG; Start 11/19/18 at 09:00; Status Hold Levothyroxine Sodium (Synthroid) 50 mcg BEFORE BREAKFAST PO Last administered on 11/21/18 05:27; Admin Dose 50 MCG; Start 11/19/18 at 07:00 Metformin HCl (Glucophage) 1,000 mg WITH BREAKFAST DINNE PO Last administered on 11/21/18 09:10; Admin Dose 1,000 MG; Start 11/19/18 at 08:00 Potassium Chloride (Klor-Con 10) 10 meq DAILY PO Last administered on 11/21/18 08:34; Admin Dose 10 MEQ; Start 11/19/18 at 09:00 Terazosin HCl (Hytrin) 2 mg BID PO Last administered on 11/19/18 20:40; Admin Dose 2 MG; Start 11/18/18 at 22:00; Status Hold Tiotropium [place] (Spiriva) 1 inh DAILY INH Last administered on 11/20/18 08:48; Admin Dose 1 INH; Start 11/19/18 at 09:00 Zolpidem Tartrate (Ambien) 5 mg HS MAY REPEAT X 1 PRN PO INSOMNIA; Start 11/18/18 at 19:00 Ondansetron HCl (Zofran Inj) 4 mg Q4H PRN IV nausea; Start 11/18/18 at 19:00 Morphine Sulfate (morphine) 2 mg Q4H PRN IV SEVERE PAIN LEVEL 7-10 Last admin istered on 11/20/18 03:20; Admin Dose 2 MG; Start 11/19/18 at 09:00 Metoprolol Tartrate (Lopressor) 25 mg BID PO Last administered on 11/21/18 08:33; Admin Dose 25 MG; Start 11/19/18 at 10:00 Alprazolam (Xanax) 0.5 mg Q4H PRN PO agitation Last administered on 11/20/18 09:49; Admin Dose 0.5 MG; Start 11/19/18 at 11:30 Sodium Chloride 1,000 ml @ 100 mls/hr Q10H IV Last administered on 11/21/18 03:15; Admin Dose 100 MLS/HR; Start 11/19/18 at 16:00; Status Hold Amiodarone HCl (Cordarone) 200 mg TID PO Last administered on 11/21/18 08:34; Admin Dose 200 MG; Start 11/20/18 at 21:00 Lactulose (Enulose) 20 gm BID PRN PO CONSTIPATION; Start 11/20/18 at 14:00 Furosemide (Lasix) 40 mg ONCE ONCE IV ; Start 11/21/18 at 10:30; Stop 11/21/18 at 10:31; Status UNV Albuterol/ Ipratropium (Duoneb) 3 ml Q4H RESP THERAPY HHN ; Start 11/21/18 at 13:00; Status UNV VTE Prophylaxis Risk score (from Ns)>0 risk: 7 SCD applied (from Nsg): Yes Lines/Catheters IV Catheter Type: Saline Lock Kim in Place: No Assessment/Plan Assessment/Plan 88-year-old male with paroxysmal atrial fibrillation/flutter, rate controlled Cardiomyopathy with EF of 35% Acute systolic congestive heart failure exacerbation Atypical chest pain Widely metastatic prostate cancer Stage III chronic kidney disease Anemia of chronic disease IV Lasix x1 DuoNeb Continue amiodarone and Lopressor Discharge planning when respiratory status improves Cardiology follow-up JESSICA IGNACIO MD November 21, 2018 10:28
[2018-11-21] MEDS ORDERED: FURO20TA3 PO (10:30)
[2018-11-21] MEDS ORDERED: FUROSEMIDE 40 MG INJ IV ONE ×2 (10:30→17:30)
[2018-11-21] MEDS ORDERED: ALBUTEROL/IPRATROPIUM (NEB) 3 ML AMP HHN STA (10:37)
--- NOTE | 2018-11-21 12:59 | CONS ---
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 Patient remains asymptomatic. This is improved since initiation of amiodarone on 11/20/2018. Continue beta-blockers heart rate and blood pressure permits would not use digoxin given his renal dysfunction. -Patient underwent VQ scan with low probably for pulmonary emboli. His chest discomfort does not appear cardiac in etiology. -Chest x-ray with evidence of volume overload, likely contributing factor was IV fluids, this has been stopped. Patient status post dose of IV Lasix today. Would give spot diuretics as necessary -I did discuss with patient's daughter on regarding anticoagulation in the setting of purposeful atrial fibrillation/flutter. Patient with progressive worsening gait and has been unsteady at times. Was a concern of him being a fall risk. With that said, would hold off on antibiotics at the current time until he is not considered a significant fall risk Consultation Date/Type/Reason Admit Date/Time November 20, 2018 at 14:43 Initial Consult Date Type of Consult Cardiology Date/Time of Note DATE: 11/21/18 TIME: 12:55 24 HR Interval Summary Free Text/Dictation Patient denies any shortness of breath currently. Denies palpitations Exam/Review of Systems Vital Signs Vitals Vital Signs Date Temp Pulse Resp B/P (MAP) Pulse Ox O2 O2 Flow FiO2 Time Delivery Rate 11/21/18 97.8 51 17 105/59 94 11:21 (74) 11/21/18 Nasal 2.0 08:30 Cannula Intake and Output 11/20/18 11/20/18 11/21/18 1515:00 23:00 07:00 IntakeIntake Total 1200 ml 1100 ml OutputOutput Total 500 ml 200 ml BalanceBalance 700 ml 900 ml Exam Exam Sleeping but arousable, follows commands, no dyspnea with speaking, nurse at bedside Head: normocephalic Respiratory: other (Coarse breath sounds bilaterally, no wheezing) Cardiovascular: regular rate and rhythm (Frequent irregularities), other (S1-S2 heard) Gastrointestinal: soft, non-tender, bowel sounds Extremities: edema (Trace) Labs Result Diagram: 11/20/18 1051 11/20/18 1051 Results 24hrs Laboratory Tests Test 11/20/18 17:21 11/21/18 08:32 Bedside Glucose 191 172 Medications Medications Current Medications Bicalutamide (Casodex) 50 mg DAILY PO Last administered on 11/21/18 08:38; Admin Dose 50 MG; Start 11/19/18 at 09:00 Finasteride (Proscar) 5 mg DAILY PO Last administered on 11/21/18 08:33; Admin Dose 5 MG; Start 11/19/18 at 09:00 Fluticasone/ Vilanterol (Breo Ellipta 100-25 Mcg Inh) 1 inh DAILY INH Last administered on 11/20/18 08:50; Admin Dose 1 INH; Start 11/19/18 at 09:00 Furosemide (Lasix) 40 mg DAILY PO Last administered on 11/19/18 08:29; Admin Dose 40 MG; Start 11/19/18 at 09:00; Status Hold Levothyroxine Sodium (Synthroid) 50 mcg BEFORE BREAKFAST PO Last administered on 11/21/18 05:27; Admin Dose 50 MCG; Start 11/19/18 at 07:00 Metformin HCl (Glucophage) 1,000 mg WITH BREAKFAST DINNE PO Last administered on 11/21/18 09:10; Admin Dose 1,000 MG; Start 11/19/18 at 08:00 Potassium Chloride (Klor-Con 10) 10 meq DAILY PO Last administered on 11/21/18 08:34; Admin Dose 10 MEQ; Start 11/19/18 at 09:00 Terazosin HCl (Hytrin) 2 mg BID PO Last administered on 11/19/18 20:40; Admin Dose 2 MG; Start 11/18/18 at 22:00; Status Hold Tiotropium [place] (Spiriva) 1 inh DAILY INH Last administered on 11/20/18 08:48; Admin Dose 1 INH; Start 11/19/18 at 09:00 Zolpidem Tartrate (Ambien) 5 mg HS MAY REPEAT X 1 PRN PO INSOMNIA; Start 11/18/18 at 19:00 Ondansetron HCl (Zofran Inj) 4 mg Q4H PRN IV nausea; Start 11/18/18 at 19:00 Morphine Sulfate (morphine) 2 mg Q4H PRN IV SEVERE PAIN LEVEL 7-10 Last administered on 11/20/18 03:20; Admin Dose 2 MG; Start 11/19/18 at 09:00 Metoprolol Tartrate (Lopressor) 25 mg BID PO Last administered on 11/21/18 08:33; Admin Dose 25 MG; Start 11/19/18 at 10:00 Alprazolam (Xanax) 0.5 mg Q4H PRN PO agitation Last administered on 11/20/18 09:49; Admin Dose 0.5 MG; Start 11/19/18 at 11:30 Sodium Chloride 1,000 ml @ 100 mls/hr Q10H IV Last administered on 11/21/18 03:15; Admin Dose 100 MLS/HR; Start 11/19/18 at 16:00; Status Hold Amiodarone HCl (Cordarone) 200 mg TID PO Last administered on 11/21/18 08:34; Admin Dose 200 MG; Start 11/20/18 at 21:00 Lactulose (Enulose) 20 gm BID PRN PO CONSTIPATION; Start 11/20/18 at 14:00 Albuterol/ Ipratropium (Duoneb) 3 ml Q4H RESP THERAPY HHN ; Start 11/21/18 at 13:00 Ty Deutsch DO November 21, 2018 12:59
[2018-11-21] MEDS: ALBUTEROL/IPRATROPIUM (NEB) 3 ML AMP HHN SCH ×2 (14:04→16:51)
[2018-11-21] MEDS ORDERED: CYCLOSPORINE 0.05% OPH DROPERETTE ONE (17:51)
== END 2018-11-21 19:30 | disposition home health service (06) | DRG 204 ==
LOC: E/R 14:09 → 6WM 18:32 → OBSVTOIN 11-20 14:43
PROVIDERS: ADMIT Internal Medicine; ATTEND Internal Medicine
DX: R07.81 Pleurodynia (principal); I50.23 Acute on chronic systolic (congestive) heart failure; C79.51 Secondary malignant neoplasm of bone; C78.00 Secondary malignant neoplasm of unspecified lung; I47.1 Supraventricular tachycardia; I48.92 Unspecified atrial flutter; I42.9 Cardiomyopathy, unspecified; I13.0 Hypertensive heart and chronic kidney disease with heart failure and stage 1 through stage 4 chronic kidney disease, or unspecified chronic kidney disease; N17.9 Acute kidney failure, unspecified; N18.3 Chronic kidney disease, stage 3 (moderate); J44.9 Chronic obstructive pulmonary disease, unspecified; Z66 Do not resuscitate; E11.22 Type 2 diabetes mellitus with diabetic chronic kidney disease; E86.0 Dehydration; N40.0 Benign prostatic hyperplasia without lower urinary tract symptoms; D63.8 Anemia in other chronic diseases classified elsewhere; E03.9 Hypothyroidism, unspecified; I48.0 Paroxysmal atrial fibrillation; Z85.46 Personal history of malignant neoplasm of prostate; Z87.891 Personal history of nicotine dependence
CPT/HCPCS: 36415; 71045; 78582; 80048; 82962; 83735; 84443; 84484; 85025; 85378; 93005; 93306; 94640; 97110; 97161; G0378; A9540; J1940; J2270; J2405; J3475; J7030; J7040

== ENCOUNTER 2019-01-03 19:57 | Emergency (ER) | payer BC ==
[~2019-01-03] VITALS: Wt 70.0 kg
[~2019-01-03 19:57] MED LIST changes: +ALPR0.5T6 PO; +AMIO200T4 PO; +BICA50TA5 PO; +FURO20TA3 PO; -FURO40TA4 PO; -GLIP10TA14 PO; +METO-448 PO; -NICO-546 TRANSDERM; +OMEP20CA16 PO; -POTA10TA37 PO; +PRED5TAB PO
[2019-01-03] MEDS ORDERED: ONDANSETRON 4 MG INJ IV STA (20:28)
[2019-01-03] MEDS ORDERED: SOD CHLORIDE 0.9% 1,000 ML IV STA (20:28)
[2019-01-03] MEDS ORDERED: ONDA4TAB14 PO (22:47)
[2019-01-03] MEDS ORDERED: ELEC100080 PO (22:47)
--- NOTE | 2019-01-03 22:49 | ERD ---
ER Documentation Chief Complaint Chief Complaint vomiting today and low bp at home with diarrhea , denies any abd pain HPI Patient is an 88-year-old male with stage IV prostate cancer, atrial fibrillation, and diabetes who presents with diarrhea. For 6 days he is had a low blood pressure that was as low as 66/33. He is on palliative care at home and has a home health nurse that sees him. The patient had vomiting and diarrhea and decreased p.o. intake over the past few days. Upon review of old medical records this is the patient's fifth visit to the ER since 2018. He does have a primary doctor. ROS All systems reviewed and are negative except as per history of present illness. Medications Home Meds Active Scripts Electrolyte,Oral (Pedialyte) 1,000 Ml Solution, 100 ML PO Q6 PRN for VOMITTING, #1 ML Prov:KAY MARIA MD 01/03/19 Ondansetron (Ondansetron Odt) 4 Mg Tab.rapdis, 4 MG PO Q6H PRN for NAUSEA AND/OR VOMITING, #10 TAB Prov:KAY MARIA MD 01/03/19 Furosemide* (Furosemide*) 20 Mg Tablet, 20 MG PO DAILY, #60 TAB Prov:JESSICA IGNACIO MD 11/21/18 Amiodarone Hcl* (Amiodarone Hcl*) 200 Mg Tablet, 200 MG PO TID for 30 Days, TAB 3 Refills Prov:JESSICA IGNACIO MD 11/21/18 Alprazolam* (Alprazolam*) 0.5 Mg Tablet, 0.5 MG PO Q4H PRN for agitation for 30 Days, TAB Prov:JESSICA IGNACIO MD 11/20/18 Metoprolol Tartrate* (Lopressor*) 25 Mg Tab, 25 MG PO BID for 30 Days, TAB 3 Refills Prov:JESSICA IGNACIO MD 11/19/18 Fluticasone-Vilanterol (Breo Ellipta Inhaler) 100-25 Mcg/Actuation Aer.pow.ba, 1 INH INH DAILY, #1 INHALER 3 Refills Prov:DEION GERMAIN 07/13/18 Tiotropium [place]* (Spiriva*) 18 Mcg Cap.w.dev, 1 INH INH DAILY, #1 INHALER 3 Refills Prov:DEION GERMAIN 07/13/18 Metformin Hcl* (Metformin Hcl*) 1,000 Mg Tablet, 1000 MG PO WITH BREAKFAST DINNE, #60 TAB resume on 07/15 Prov:DEION GERMAIN 07/13/18 Reported Medications Bicalutamide* (Casodex*) 50 Mg Tablet, 50 MG PO DAILY, TAB 11/18/18 Finasteride* (Finasteride*) 5 Mg Tablet, 5 MG PO DAILY, TAB 11/18/18 Levothyroxine Sodium* (Levothyroxine Sodium*) 50 Mcg Tablet, 50 MCG PO BEFORE BREAKFAST, #30 TAB 11/18/18 Omeprazole* (Omeprazole*) 20 Mg Capsule.dr, 20 MG PO DAILY, #30 CAP 11/18/18 Prednisone* (Prednisone*) 5 Mg Tab, 5 MG PO BID, TAB 11/18/18 Terazosin Hcl* (Terazosin Hcl*) 2 Mg Capsule, 2 MG PO BID, CAP 11/18/18 Allergies Allergies: Coded Allergies: No Known Allergy (Unverified , 11/18/18) PMhx/Soc History of Surgery: Yes Anesthesia Reaction: No Hx Neurological Disorder: No Hx Respiratory Disorders: Yes (sob,asthma, emphysema, COPD, Lung CA) Hx Cardiac Disorders: Yes Hx Psychiatric Problems: Yes Hx Miscellaneous Medical Probl: Yes (COPD, DM, 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 Neck: Full range of motion. No meningismus. Resp: Clear to auscultation bilaterally Cardio: Regular rate and rhythm, no murmurs Abd: Soft, non tender, non distended. Normal bowel sounds Skin: No petechiae or rashes Back: No midline or flank tenderness Ext: No cyanosis, or edema Neur: Awake and alert Psych: Normal Mood and Affect Result Diagram: 01/03/19205401/03/192054 Results 24 hrs Laboratory Tests Test 01/03/19 20:55 White Blood Count 8.6 10^3/ul Red Blood Count 3.41 10^6/ul Hemoglobin 10.5 g/dl Hematocrit 32.6 % Mean Corpuscular Volume 95.6 fl Mean Corpuscular Hemoglobin 30.8 pg Mean Corpuscular Hemoglobin Concent 32.2 g/dl Red Cell Distribution Width 13.2 % Platelet Count 209 10^3/UL Mean Platelet Volume 10.4 fl Immature Granulocytes % 0.300 % Neutrophils % 88.6 % Lymphocytes % 5.0 % Monocytes % 5.8 % Eosinophils % 0.2 % Basophils % 0.1 % Nucleated Red Blood Cells % 0.0 /100WBC Immature Granulocytes # 0.030 10^3/ul Neutrophils # 7.6 10^3/ul Lymphocytes # 0.4 10^3/ul Monocytes # 0.5 10^3/ul Eosinophils # 0.0 10^3/ul Basophils # 0.0 10^3/ul Nucleated Red Blood Cells # 0.0 10^3/ul Sodium Level 134 mmol/L Potassium Level 5.4 mmol/L Chloride Level 98 mmol/L Carbon Dioxide Level 20 mmol/L Anion Gap 16 Blood Urea Nitrogen 88 mg/dl Creatinine 3.04 mg/dl Est Glomerular Filtrat Rate mL/min mL/min Glucose Level 212 mg/dl Calcium Level 9.4 mg/dl Total Bilirubin 0.3 mg/dl Direct Bilirubin 0.00 mg/dl Indirect Bilirubin 0.3 mg/dl Aspartate Amino Transf (AST/SGOT) 24 IU/L Alanine Aminotransferase (ALT/SGPT) 37 IU/L Alkaline Phosphatase 62 IU/L Troponin I 0.016 ng/ml Total Protein 7.1 g/dl Albumin 3.7 g/dl Globulin 3.40 g/dl Albumin/Globulin Ratio 1.08 Lipase 17 U/L Current Medications Medications Dose Sig/Annemarie Start Time Status Last (Trade) Ordered Route PRN Stop Time Admin Dose Reason Admin Sodium 1,000 ml @ Q1H STAT 01/03/19 DC 01/03/19 Chloride 1,000 mls/hr IV 20:28 20:58 01/03/19 21:27 Ondansetron 4 mg ONCE STAT 01/03/19 DC 01/03/19 HCl (Zofran IV 20:28 20:58 Inj) 01/03/19 20:29 Procedures/MDM EKG read by me: Rate/Rhythm: Regular rate and rhythm Intervals: Normal Impression: No evidence of ischemia or arrhythmia Patient is an 88-year-old male with stage IV cancer on palliative care who presents with diarrhea and vomiting. He was found to have acute renal failure with elevated BUN and creatinine. I spoke to the family about this but they do not want to be admitted to the hospital and would prefer to go home at this time. The patient was given normal saline 1 L boluses I do believe that this is a prerenal source of his renal failure. He was instructed to drink more fluids. The patient will need to follow-up closely with his primary doctor and can re turn if symptoms worsen. The patient will be given a prescription for Zofran. Departure Diagnosis: Primary Impression: Vomiting and diarrhea Additional Impressions: ARF (acute renal failure) Acute renal failure type: unspecified Qualified Codes: N17.9 - Acute kidney failure, unspecified Dehydration Condition: Fair Patient Instructions: Self-Care for Vomiting and Diarrhea Referrals: Your doctor Additional Instructions: Call your primary care doctor TOMORROW for an appointment during the next 1-2 days.See the doctor sooner or return here if your condition worsens before your appointment time. KAY MARIA MD Jan 03, 2019 22:49
[2019-01-03 23:00] VITALS: BP 100/72; PULSE 91; RESP 17
== END 2019-01-03 23:21 | disposition home or self-care (01) ==
LOC: E/R 19:57
DX: N17.9 Acute kidney failure, unspecified (principal); R11.10 Vomiting, unspecified; E86.0 Dehydration; E11.9 Type 2 diabetes mellitus without complications; J44.9 Chronic obstructive pulmonary disease, unspecified; I10 Essential (primary) hypertension; Z85.46 Personal history of malignant neoplasm of prostate; Z85.118 Personal history of other malignant neoplasm of bronchus and lung; Z79.84 Long term (current) use of oral hypoglycemic drugs
CPT/HCPCS: 36415; 80053; 83690; 84484; 85025; 93005; 96361; 96374; 99284; J2405; J7030